=== PATIENT | male | born 1965 | race Hispanic/Latino ===

== ENCOUNTER 2016-12-02 11:48 | Emergency (ER) | payer OTHER ==
[2016-12-02] VITALS (8 sets, daily range): BP systolic 72–99; BP diastolic 40–59; PULSE 65–121; RESP 13–32; O2SAT 95–100
--- NOTE | 2016-12-02 11:45 | ED.REPORT ---
HPI-General Illness Date of Service Dec 02, 2016 ED Provider: Dr. Zuluaga Pt is a 51 year old male with a history of a DKA in October, who presents to the ED via EMS with concerns for altered mental status that started a couple of days ago. Per EMS, he has been acting abnormally, urinating around his apartment. He was found today in his room, which was freezing cold, naked on the floor, unresponsive. He responds to painful stimuli, but is otherwise unresponsive. He is hypotensive, with an elevated blood sugar and a temperature of 89.4. Nursing Notes Stated Complaint: ALTERED MENTAL STATUS/HIGH BLOOD SUGAR Chief Complaint: AMS Nursing Notes Reviewed: Yes Allergies: Coded Allergies: acetaminophen (Verified Allergy, Unknown, 07/15/16) aspirin (Verified Allergy, Unknown, rash, 07/15/16) Scheduled Atorvastatin Calcium (Atorvastatin Calcium) 20 Mg Tablet 20 MG PO DAILY Buspirone (Buspirone) 30 Mg Tablet 30 MG PO DAILY Fenofibrate Nanocrystallized (Fenofibrate) 145 Mg Tablet 145 MG PO DAILY Fluoxetine (Fluoxetine) 40 Mg Capsule 40 MG PO MORNING Gemfibrozil (Gemfibrozil) 600 Mg Tablet 600 MG PO BID Metoclopramide (Metoclopramide) 10 Mg Tablet 10 MG PO TIDAC & HS Omeprazole (Omeprazole) 20 Mg Capsule.dr 20 MG PO DAILY Pregabalin (Lyrica) 150 Mg Capsule 150 MG PO TID Risperidone (Risperidone) 1 Mg Tablet 1 MG PO HS Ziprasidone (Ziprasidone) 80 Mg Capsule 160 MG PO HS Scheduled PRN Dicyclomine (Dicyclomine) 20 Mg Tablet 40 MG PO QID PRN PRN For GI Cramps Hydroxyzine HCl (HydrOXYzine Hcl) 50 Mg Tablet 50 MG PO HS PRN PRN For Itching Hydroxyzine Pamoate (Vistaril) 25 Mg Capsule 25 MG PO DAILY PRN PRN For Anxiety Insulin Glargine (Lantus U100 Insulin Vial) 100 Unit/Ml Vial 50 UNIT SUBQ DAILY PRN PRN Diabetes Insulin Human Lispro (HumaLOG U100 Insulin Vial) 100 Unit/Ml Unit 15 UNIT SUBQ TIDWM PRN PRN diabetes Check blood sugars before meals and at bedtime. Use correction factor only before meals. Blood Sugar Lispro Correction: <151, 0 units; 151-175, 1 unit; 176-200, 2 units; 201-225, 3 units; 226-250, 4 units; 251-275, 5 units; 276-300 , 6 units; 301-325, 7 units; 326-350, 8 units; 351-375, 9 units; 376-400, 10 units; >400, 12 units. 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 Physical Exam Vital Signs Vital Signs Date Time Temp Pulse Resp B/P Pulse Ox O2 Delivery O2 Flow Rate FiO2 12/02/16 14:10 65 17 99/56 100 Mechanical Ventilator 12/02/16 13:56 100 12/02/16 13:42 32.3 121 13 72/40 100 Mechanical Ventilator 12/02/16 13:20 32.1 68 28 85/59 95 Nasal Cannula 1 12/02/16 12:29 69 21 81/47 98 Nasal Cannula 1 12/02/16 11:58 102 30 77/50 Room Air 12/02/16 11:49 31.2 107 32 79/44 99 Room Air See paper chart Initial VS: Reviewed Head / Eyes: Atraumatic, Normocephalic, PERRL Neck: Supple, Non-tender, Full range of motion Alertness: Positive: Responds to pain stimuli (Moaning/Localizes to painful stimuli), Unresponsive Appearance / Presentation: Positive: Cachectic, Frail Hypotensive Hypothermic No signs of trauma Opens eyes ENT: Atraumatic, Airway patent Mouth: Positive: Mucous membranes dry Respiratory / Chest: Atraumatic, Breath sounds NL, Breath sounds = bilat Tachypnic Cardiovascular: Regular rhythm, Heart sounds NL, No gallop, No murmurs, No rubs Heart Rate / Rhythm: Positive: Tachycardia Back: Non-tender Minor abrasion to left lumbar, paraspinal area without surrounding tenderness Interpretation & Diagnostics Lab Results Interpretation Result Diagram: 12/02/16 1205 12/02/16 1205 Test 12/02/16 12:05 12/02/16 12:18 White Blood Count 9.9th/mm3 (3.8-10.1) Red Blood Count 5.20mil/mm3 (4.40-5.80) Hemoglobin 14.7g/dL (13.8-17.2) Hematocrit 40.4% (41.0-50.0) Mean Corpuscular Volume 77.7fL (81-100) Mean Corpuscular Hemoglobin 28.3pg (27.0-35.0) Mean Corpuscular Hemoglobin Concent 36.4% (32.0-37.0) Red Cell Distribution Width 12.9% (12.3-15.4) Platelet Count 222bil/L (150-400) Neutrophils (%) (Auto) 80.0% (40-74) Lymphocytes (%) (Auto) 7.7% (14-46) Monocytes (%) (Auto) 11.9% (4-12) Eosinophils (%) (Auto) 0% (0-5) Basophils (%) (Auto) 0.1% (0-3) Sodium Level 128mEq/L (134-144) Potassium Level 5.7mEq/L (3.5-5.2) Chloride Level 81mEq/L (97-108) Carbon Dioxide Level 8mmol/L (18-29) Blood Urea Nitrogen 155mg/dL (6-24) Creatinine 5.55mg/dL (0.76-1.27) Estimat Glomerular Filtration Rate 12mL/min (>59) Glucose Level 1016mg/dL (60-99) Lactic Acid Level 1.9mmol/L (0.4-2.0) Calcium Level 8.8mg/dL (8.5-10.1) Magnesium Level 4.3mg/dL (1.6-2.6) Total Bilirubin 0.2mg/dL (0.0-1.2) Aspartate Amino Transf (AST/SGOT) 28U/L (0-50) Alanine Aminotransferase (ALT/SGPT) 29U/L (0-44) Alkaline Phosphatase 130U/L (25-150) Troponin T < 0.010ug/L (0.0-0.011) Total Protein 7.3g/dL (6.4-8.4) Albumin 3.6g/dL (3.4-5.0) Ketones 1:32 Urine Color Yellow (YELLOW) Urine Appearance Hazy (CLEAR,HAZY) Urine pH 5.0 (5.0-8.0) Urine Specific [place] 1.022 (1.003-1.035) Urine Protein Tracemg/dL (NEG,TRACE) Urine Glucose (UA) 1000mg/dL (NEGATIVE) Urine Ketones 15mg/dL (NEGATIVE) Urine Occult Blood Large (NEGATIVE) Urine Nitrite Negative (NEGATIVE) Urine Bilirubin Negative (NEGATIVE) Urine Urobilinogen Normalmg/dL (NORMAL) Urine Leukocyte Esterase Negative (NEGATIVE) Urine RBC 3-10/hpf (0-2) Urine WBC 0-5/hpf (0-5) Urine Epithelial Cells Few/hpf (NONE-MOD) Urine Crystals Amorphous urates (NONE Urine Bacteria None/hpf (NONE-FEW) Urine Hyaline Casts None/lpf (NONE) Urine Granular Casts Occasional (NONE SEEN) Urine Waxy Casts None seen (NONE SEEN) Urine Red Blood Cell Casts None seen (NONE SEEN) Urine White Blood Cell Casts None seen (NONE SEEN) Urine Mucus None seen (None Seen) Urine Trichomonas None seen (NONE SEEN) Urine Yeast None (NONE SEEN) Urinalysis Comment None Urine Culture Reflexed Not indicated Lab Results Interpretation: Blood Gas Report: pH: 7.038 pCO2: 34 pO2: 60.5 cHCO3-: 8.8 cBase: -22.0 Treated with 1L of normal saline by medics and 7L of normal saline her in the ED. ECG Interpretation ECG Interpretation: SR - 62 Non-specific intraventricular conduction delay ST elevation, probable normal early repolarization pattern Time: 12:10 Interpreted by: ED physician X-Ray Chest Interpretation Chest Xray Interpretation: IMPRESSION: No acute cardiopulmonary disease. Dictated by: Marlo Hanks M.D. on 12/02/2016 at 12:10 View: Portable, 1 view Interpretation / Wet Read by: Interpret - Radiologist Chest Xray Interpretation: IMPRESSION: Endotracheal tube and right internal jugular central venous catheter are in expected positions. No pneumothorax. Dictated by: Marlo Hanks M.D. on 12/02/2016 at 14:22 View: Portable, 1 view Interpretation / Wet Read by: Interpret - Radiologist Procedures Central Line Placement Time: 13:54 Procedure Performed by: ED physician Consent / Setup / Site Prep: No consent - emergent, Time-out performed, Needle aspirate performed, Oxygen administered, Pulse oximeter applied, cardiac monitor applied, Hand hygiene observed, Standard surgical scrub, Max barrier precaution, Sterile drapes applied, Position supine Skin Preparation Agent: Hibiclens - Chlorhexidine Procedural Sedation/Analgesia: Sedation: Ketamine Side / Location / Ultrasound: Internal jugular right, Ultrasound assisted Catheter / Lumen / Technique: Good blood return, Secured with tape Central Line Tip Location: Other (17cm) Post-Procedure / Complications: Condition improved, Tolerated procedure well , Patient stable Intubation Time: 13:34 Procedure Performed by: ED physician Consent / Setup / Site Prep: No consent - emergent, Time-out performed, Oxygen administered, Pulse oximeter applied, cardiac monitor applied, Hand hygiene observed, Stand sterile technique Patient Position: Sniff position Blade / ET Tube / Route: Mac, Route: oral Procedural Sedation/Analgesia: Sedation: Ketamine Neuromuscular Agent: Succinylcholine ET Confirmation: Direct visualization, BS equal, Rising O2 sat Secured / Marked: Tube marked at ___ cm (23) Complications: None Post-Procedure: Condition improved, Tolerated procedure well, Patient stable Re-Eval/Medical Decision Med Decision/Clinical Course DKA with acute renal failure, patient is intubated due to hemodynamic instability, shock, and persistent altered mental status. Should be noted that while the patient is persistently altered is not significant or focal neurological examination to see any indication for emergent head CT. The patient received 1 L of normal saline prior to arrival. The patient will have 7 L normal saline in the ER. The patient was given 150 mg of IV ketamine for intubation, additionally the patient is on a norepinephrine, fentanyl, and insulin drip. She will be transferred due to bed capacity. Source of Hx: Old records, EMS Time of Eval: 11:56 Re-Evaluation/Progress Note: Pt is consistentely monitored. Pt is able to open his eye when directed but is unable to respond verbally. Time of Eval: 12:11 Re-Evaluation/Progress Note: Pt is rechecked, he is still unable to verbally respond. Time of Eval: 13:18 Re-Evaluation/Progress Note: Pt is rechecked and prepped for central line placement and intubation. Consultation : Call Returned at: 13:44 Note: Spoke with Dr. Parker at [facility]. Informed of patient's condition. Accepts transfer. Counseled Regarding: Diagnosis, Lab results, Need for transfer Discharge & Departure Primary Impression: DKA (diabetic ketoacidoses) Additional Impressions: Shock Hypotension Hypotension type: unspecified hypotension type Qualified Code: I95.9 - Hypotension, unspecified Disposition: Transfer, Acute Care Facility Receiving Hospital: [facility]. Dr. Parker Transfer Accepted: Yes Transfer Accepted at: 13:45 Transfer Reason: Higher level of care Spoke with: Attending physician Patient Status: Stable Patient Informed: Yes Discharge Condition All VS Reviewed: Yes Condition: Stable Referrals: Bhavani Galeano MD (PCP) Crit Care Except Billable Proc Time Spent: 75-104 minutes Services Performed: Patient management by me, Time spent at bedside, Reviewing test results, Reviewing imaging, Discussing patient care, Documentation in record, Time with fam/surrogate Critical Care Notes: See MDM Scribe Attestation Portions of this note were transcribed by Molly Ibarra. I, Dr. Zuluaga personally performed the history, physical exam and medical decision-making; I reviewed and confirmed the accuracy of the information in the transcribed note. Signed by: Nessa Gordon, 12/02/2016 1893. copies to: Bhavani Galeano MD, Timothy S DO Dec 02, 2016 11:45 WU IBARRA Dec 02, 2016 11:54
[~2016-12-02 11:48] MED LIST: ATOR20TA65 PO; BUSP30TA2 PO; DICY20TA10 PO; FENO145T19 PO; FLUO40CA PO; GEMF600T3 PO; HYDR25CA PO; HYDR50TA76 PO; INSLIS SUBQ; INSU100V7 SUBQ; METO10TA3 PO; OMEP20CA11 PO; PREG150C PO; RISP1TAB3 PO; TRAM50TA2 PO; ZIPR80CA22 PO
[2016-12-02] MEDS ORDERED: 0.9% Sodium Chloride 1,000 ML IV ONE ×2 (11:51→11:55)
[2016-12-02] MEDS ORDERED: 0.9% Sodium Chloride 1,000 ML IV SCH ×3 (11:55→14:35)
[2016-12-02] MEDS: 0.9% Sodium Chloride 1,000 ML IV SCH ×2 (11:55→12:16)
--- NOTE | 2016-12-02 12:07 | ABG ---
DateTimeAnalyzed 12:02:00 -_ pH ____7.038 - pCO2 ___34.1__ -mmHg pO2 ___60.5__ -mmHg HCO3- ____8.8__ -mmol/L ABE __-22.0__ -mmol/L tHb ___15.0__ -g/dL O2Hb ___82.3__ -% COHb ____1.4__ -% MetHb ____1.8__ -% sO2 ___85.0__ -% FIO2 ___21.0__ -% Drawn By LAB - Date/Time Notified____ 12:07:00 -_ Notified By JJ - Notified Whom DR OKELLEY - B 758 -mmHg tO2 ___17.4__ -Vol% Ghulam test N/A -
--- NOTE | 2016-12-02 12:12 | DRSVH ---
PROCEDURE: X-RAY CHEST ONE VIEW, PORTABLE ([id number]) INDICATIONS: 51 year-old male with weakness and altered mental status. TECHNIQUE: One view of the chest was acquired. COMPARISON: [facility], CR, XR CHEST 1VW (PORTABLE), 10/01/2016, 18:36. [facility], CR, CHEST 2VW, 12/04/2015, 10:04. [facility], CR, CHEST 1VW (PORTABLE), 12/26/19 15, 16:28. FINDINGS: Surgical changes and devices: None. Lungs and pleura: No pleural effusions or pneumothorax. Lungs are clear. Mediastinum: Mediastinal contours appear normal. Heart size is normal. Bones and chest wall: No suspicious bony lesions. Overlying soft tissues appear unremarkable. IMPRESSION: No acute cardiopulmonary disease. Dictated by: Marlo Hanks M.D. on 12/02/2016 at 12:10 Approved by: Marlo Hanks M.D. on 12/02/2016 at 12:10
[2016-12-02] MEDS ORDERED: Insulin Human REGular Inj 100 UNIT in 0.9% Sodium Chloride 100 ML IV SCH (12:15)
[2016-12-02 12:19] LABS: BASOPHILS % (AUTO) 0.1 % (0-3); EOSINOPHILS % (AUTO) 0 % (0-5); MONOCYTES % (AUTO) 11.9 % (4-12); Mean Corpuscular Hemoglobin 28.3 pg (27.0-35.0); Mean Corpuscular Volume 77.7 fL (81-100); Platelet Count 222 bil/L (150-400)
[2016-12-02 12:57] LABS: Magnesium 4.3 mg/dL (1.6-2.6)
[2016-12-02 13:00] LABS: TROPONIN T < 0.010 ug/L (0.0-0.011)
[2016-12-02] MEDS ORDERED: Ketamine 10 mg/mL 20 mL Inj IV ONE (13:10)
[2016-12-02] MEDS ORDERED: fentaNYL 2,500 mCg/250 mL 2,500 MCG in IV Premix 1 EACH IV SCH (13:10)
[2016-12-02] MEDS ORDERED: Norepineph 8,000 mCg/250 mL NS 8,000 MCG in IV Premix 1 EACH IV SCH (13:10)
[2016-12-02 13:29] LABS: APPEARANCE,URINE HAZY (CLEAR,HAZY); COLOR,URINE YELLOW (YELLOW); OCCULT BLOOD,URINE LARGE (NEGATIVE); UROBILINOGEN,URINE NORMAL (NORMAL)
--- NOTE | 2016-12-02 14:23 | DRSVH ---
PROCEDURE: X-RAY CHEST ONE VIEW, PORTABLE ([id number]) INDICATIONS: 51 year-old male with intubation and central line placement. TECHNIQUE: One view of the chest was acquired. COMPARISON: [facility], CR, XR CHEST 1VW (PORTABLE), 12/02/2016, 11:45. [facility], CR, XR CHEST 1VW (PORTABLE), 10/01/2016, 18:36. [facility] [place] [facility], CR, CHEST 2VW, 12/04, 10:04. FINDINGS: Surgical changes and devices: Right internal jugular central venous catheter is now present, with tip in the lower superior vena cava. Endotracheal tube is now present, with tip 4.5 cm above the arley. Lungs and pleura: No pleural effusions or pneumothorax. Lungs are clear. Mediastinum: Mediastinal contours appear normal. Heart size is normal. Bones and chest wall: No suspicious bony lesions. Overlying soft tissues appear unremarkable. IMPRESSION: Endotracheal tube and right internal jugular central venous catheter are in expected posi tions. No pneumothorax. Dictated by: Marlo Hanks M.D. on 12/02/2016 at 14:22 Approved by: Marlo Hanks M.D. on 12/02/2016 at 14:22
--- NOTE | 2016-12-02 15:13 | ABG ---
DateTimeAnalyzed 15:08:00 -_ pH ____6.921 - 7.350 7.450 pCO2 ___58.1__ -mmHg 35.0 45.0 pO2 485 -mmHg 69.0 116 HCO3- ___11.3__ -mmol/L 22.0 26.0 ABE __-22.0__ -mmol/L -2.0 2.0 tHb ___12.8__ -g/dL O2Hb ___96.4__ -% COHb ____0.7__ -% MetHb ____1.7__ -% sO2 ___98.8__ -% 25.0 FIO2 __100.0__ -% Drawn By jj - Date/Time Notified____ 15:12:00 -_ Oxygen Device 1 VENTILATOR - Notified By jj - Notified Whom dr okelley - B 759 -mmHg tO2 ___18.6__ -Vol% Ghulam test _Positive -
--- NOTE | 2016-12-02 15:16 | ABG ---
DateTimeAnalyzed 15:08:00 -_ pH ____6.921 - 7.350 7.450 pCO2 ___58.1__ -mmHg 35.0 45.0 pO2 485 -mmHg 69.0 116 HCO3- ___11.3__ -mmol/L 22.0 26.0 ABE __-22.0__ -mmol/L -2.0 2.0 tHb ___12.8__ -g/dL O2Hb ___96.4__ -% COHb ____0.7__ -% MetHb ____1.7__ -% sO2 ___98.8__ -% 25.0 FIO2 __100.0__ -% PEEP ____5.0__ -cmH2O Set_RR ___22.0__ -b/min Drawn By jj - Date/Time Notified____ 15:12:00 -_ Spontaneous_RR ___22.0__ -b/min A/C __530.0__ - Oxygen Device 1 VENTILATOR - Notified By jj - Notified Whom dr okelley - B 759 -mmHg tO2 ___18.6__ -Vol% Ghulam test _Positive -
[2016-12-02] MEDS ORDERED: Sodium Bicarb (50 mEq) 8.4% 1 mEq/mL 50 mL Syringe IVPUSH ONE (15:30)
== END 2016-12-02 15:53 | disposition short-term general hospital (02) ==
LOC: SED 11:48
DX: E11.69 Type 2 diabetes mellitus with other specified complication (principal); E87.2 Acidosis; I95.9 Hypotension, unspecified; R57.9 Shock, unspecified; E78.5 Hyperlipidemia, unspecified; F17.200 Nicotine dependence, unspecified, uncomplicated; Z79.4 Long term (current) use of insulin; Z88.8 Allergy status to other drugs, medicaments and biological substances
CPT/HCPCS: 31500; 36415; 36556; 36620; 51702; 71010; 80053; 81000; 81002; 82009; 82010; 82308; 82375; 82803; 82948; 83605; 83735; 84484; 85025; 87040; 93005; 94002; 94799; 96361; 96374; 96375; 99291; 99292; J3010; J7030

== ENCOUNTER 2017-07-17 09:09 | Observation (INO) | payer OTHER ==
[~2017-07-17] VITALS: Ht 172.7 cm; Wt 82.7 kg
[2017-07-17] VITALS (8 sets, daily range): BP systolic 136–190; BP diastolic 84–117; PULSE 76–106; RESP 16–29; O2SAT 98–100
--- NOTE | 2017-07-17 09:17 | ED.REPORT ---
HPI-Neurologic Deficit Date of Service Jul 17, 2017 ED Provider: Dr. Echeverria Pt is a 51 year old male with a hx of DM, DKA, schizoaffective disorder, HTN, and GERD presenting to the ED via EMS due to a headache onset 2 days ago and confusion onset 4 days ago. Associated symptoms include shakiness, diaphoresis, fatigue, "bad odor", subjective fever, photophobia, periumbilical abdominal pain , and chest pain. He states that he feels "incoherent". Denies vision changes, speech problems, focal weakness, neck pain, SOB, or recent falls. The pt lives with a roommate who he reports called paramedics. HPI limited due to altered mental status of patient. His sister states over the phone that he has been like this once before when he had high blood sugar. The pt was admitted in December at [place] with DKA and enterocolitis due to c.diff. Nursing Notes Stated Complaint: HEADACHE/CONFUSED Chief Complaint: Neuro Symptoms/ Deficits Nursing Notes Reviewed: Yes Allergies: Coded Allergies: acetaminophen (Verified Allergy, Unknown, 07/17/17) aspirin (Verified Allergy, Unknown, rash, 07/17/17) Scheduled Atorvastatin Calcium (Atorvastatin Calcium) 20 Mg Tablet 20 MG PO DAILY Buspirone (Buspirone) 15 Mg Tablet 15 MG PO TID Doxepin (Doxepin) 100 Mg Capsule 100 MG PO HS Duloxetine (Duloxetine) 60 Mg Capsule.dr 120 MG PO DAILY Hydroxyzine HCl (HydrOXYzine Hcl) 50 Mg Tablet 100 MG PO BID Metoclopramide (Metoclopramide) 10 Mg Tablet 10 MG PO ACHS Omeprazole (Omeprazole) 20 Mg Capsule.dr 20 MG PO DAILY Pregabalin (Lyrica) 150 Mg Capsule 150 MG PO TID Ziprasidone (Ziprasidone) 80 Mg Capsule 80 MG PO BID Scheduled PRN Dicyclomine (Dicyclomine) 20 Mg Tablet 40 MG PO QID PRN PRN For GI Cramps Hydroxyzine Pamoate (Vistaril) 25 Mg Capsule 25 MG PO DAILY PRN PRN For Anxiety Insulin Glargine (Lantus U100 Insulin Vial) 100 Unit/Ml Vial 50 UNIT SUBQ DAILY PRN PRN Diabetes Insulin Human Lispro (HumaLOG U100 Insulin Vial) 100 Unit/Ml Unit 15 UNIT SUBQ TIDWM PRN PRN diabetes Check blood sugars before meals and at bedtime. Use correction factor only before meals. Blood Sugar Lispro Correction: <151, 0 units; 151-175, 1 unit; 176-200, 2 units; 201-225, 3 units; 226-250, 4 units; 251-275, 5 units; 276-300 , 6 units; 301-325, 7 units; 326-350, 8 units; 351-375, 9 units; 376-400, 10 units; >400, 12 units. Risperidone (Risperidone) 1 Mg Tablet 1 MG PO HS PRN PRN For Insomnia Tramadol (Tramadol) 50 Mg Tablet 50-100 MG PO TID PRN PRN For Pain General Time Seen by Provider: 09:20 Chief Complaint Mental status change Hx Obtained From: Patient, EMS Arrived By: Ambulance Sudden in Onset?: No Onset Occurred: 4 days ago Symptom Duration: Since onset Progression Since Onset: Constant Location: : Abdomen: Chest: HeadNo: Neck Quality: Painful Severity: Current: Moderate Severity: Maximum: Moderate Recent Healthcare: No recent doctor visit, No recent hospitalization Similar Sx Previous: No Past Medical History Past Medical History Admitted in December at [place] with DKA and enterocolitis due to c.diff Schizoaffective disorder Chronic back pain HTN Reports: Diabetes mellitus, Hyperlipidemia Past Surgical History Hernia repair x3 and umbilical surgery Family History Noncontributory Smoking History Never Smoker Social History Renting room 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 Alcohol Use: Denies alcohol use Drug Use: Denies drug use, Meth Occupation disabled Ambulatory Status Independent Review of Systems Unable to Obtain ROS Mental status Physical Exam Initial Vital Signs Vital Signs (First) Date Time Temp Pulse Resp B/P Pulse Ox O2 Delivery O2 Flow Rate FiO2 07/17/17 09:13 106 29 166/117 100 Room Air 07/17/17 13:36 36.9 Initial VS: Reviewed ENT: Mucous membranes moist, Conjunctiva normal, No scleral icterus Extremities: Vascular intact, Neuro intact, No swelling, No tenderness Skin: Warm, Dry, No cyanosis General/Constitutional: Awake Head / Eyes: Atraumatic, Normocephalic, PERRL, EOMI Respiratory / Chest: Atraumatic, Breath sounds NL, Breath sounds = bilat, No respiratory distress Cardiovascular: Heart rate NL, Regular rhythm, Heart sounds NL, No murmurs Neurologic: Speech NL, CN II - XII intact Negative Brudzinski's Test Neck: Atraumatic, Supple, No meningismus, Full range of motion Abdomen: Atraumatic, Soft, McBurney's non-tender, No guarding, No rebound Mild periumbilical pain Interpretation & Diagnostics Interpretation & Diagnostics: CT ANGIO CHEST/ABD/PELVIS: IMPRESSION: 1. Mild atherosclerosis of the thoracic and abdominal aorta without evidence of aneurysm, dissection, rupture, or occlusion. 2. Mild atherosclerotic changes are noted involving the iliac arteries. No high-grade stenosis or aneurysm. 3. Moderate atherosclerotic irregularity at the origin of the left vertebral artery is not well characterized. 4. No acute abnormality is appreciated within the chest, abdomen, or pelvis. 5. Small hiatal hernia with a fluid-filled esophagus. Please correlate clinically for gastroesophageal reflux and/or esophagitis. 6. Probable hepatic steatosis. 7. 5 mm nodule along the major fissure of the right lung. Please consider followup CT imaging of the chest in 6-12 months. 8. Mild colonic diverticulosis without diverticulitis. No bowel obstruction. 9: Coronary artery atherosclerotic changes. Dictated by: Griffin Acevedo M.D. on 07/17/2017 at 11:40 Lab Results Interpretation Result Diagram: 07/17/17 0925 07/17/17 0925 Test 07/17/17 09:25 07/17/17 09:47 07/17/17 12:44 White Blood Count 14.5th/mm3 (3.8-10.1) Red Blood Count 5.39mil/mm3 (4.40-5.80) Hemoglobin 15.8g/dL (13.8-17.2) Hematocrit 42.9% (41.0-50.0) Mean Corpuscular Volume 79.6fL (81-100) Mean Corpuscular Hemoglobin 29.3pg (27.0-35.0) Mean Corpuscular Hemoglobin Concent 36.8% (32.0-37.0) Red Cell Distribution Width 12.9% (12.3-15.4) Platelet Count 273bil/L (150-400) Neutrophils (%) (Auto) 72.9% (40-74) Lymphocytes (%) (Auto) 16.5% (14-46) Monocytes (%) (Auto) 10.2% (4-12) Eosinophils (%) (Auto) 0.1% (0-5) Basophils (%) (Auto) 0.1% (0-3) Sodium Level 135mEq/L (134-144) Potassium Level 3.0mEq/L (3.5-5.2) Chloride Level 92mEq/L (97-108) Carbon Dioxide Level 16mmol/L (18-29) Blood Urea Nitrogen 26mg/dL (6-24) Creatinine 1.03mg/dL (0.76-1.27) Estimat Glomerular Filtration Rate 81mL/min (>59) Glucose Level 373mg/dL (60-99) Calcium Level 9.5mg/dL (8.5-10.1) Total Bilirubin 1.2mg/dL (0.0-1.2) Aspartate Amino Transf (AST/SGOT) 44U/L (0-50) Alanine Aminotransferase (ALT/SGPT) 29U/L (0-44) Alkaline Phosphatase 102U/L (25-150) Total Protein 7.9g/dL (6.4-8.4) Albumin 4.6g/dL (3.4-5.0) Hold Villanueva Top Tube Received (Received) Prothrombin Time 11.0sec (8.1-12.5) Prothromb Time International Ratio 1.03ratio D-Dimer < 0.50mg/L FEU (<0.50) Osmolality 307 (275-300) Troponin T < 0.010ug/L (0.0-0.011) Lipase 9U/L (13-60) Procalcitonin 0.06ng/mL (0.00-0.08) Salicylates Level < 3.0ug/mL (30-250) Acetaminophen Level < 15.0ug/mL Rx (10-25) Alcohols < 10mg/dL (0-10) Ketones Negative (Negative) Lactic Acid Level 3.0mmol/L (0.4-2.0) Ammonia 27ug/dL (18-53) ECG Interpretation ECG Interpretation: Sinus tachycardia with a rate of 101. No ST-T changes. QTC of 513. Improved from previous. Time: 09:14 Interpreted by: ED physician X-Ray Chest Interpretation Chest Xray Interpretation: IMPRESSION: Decreased lung volumes, without acute cardiopulmonary disease. Dictated by: Marlo Hanks M.D. on 07/17/2017 at 9:42 View: Portable, 1 view Interpretation / Wet Read by: Interpret - Radiologist CT Head Interpretation IMPRESSION: Essentially unremarkable head CT. No convincing evidence of acute intracranial hemorrhage. If the patient's neurological symptoms persist, please consider obtaining a repeat head CT. Dictated by: Griffin Acevedo M.D. on 07/17/2017 at 11:36 Study: Head CT no contrast Interpretation / Wet Read by: Interpret - Radiologist Procedures Lumbar Puncture Time: 14:12 Procedure Performed by: ED physician Consent / Setup / Site Prep: Consent from patient, Time-out performed, Hand hygiene observed, Stand sterile technique, Sterile drapes applied, Patient sitting up Skin Preparation Agent: Betadine Local Anesthesia: Lidocaine 1% Inserted Needle at: L3 L4 Post-Procedure / Complications: Antibiotic oint applied, Dressing applied, No complications, Tolerated procedure well, Patient stable Re-Eval/Medical Decision Med Decision/Clinical Course 51-year-old male history of diabetes presenting with altered mental status. Patient significantly altered for 4 days per family. Vital signs are stable. CT brain no acute pathology though artifacts reported recommended repeat CT head as needed. CT angios chest abdomen pelvis no acute pathology. His lactic is 4.9 improved to 3 with IV fluids. He has a leukocytosis. Ketones are negative. He does have an anion gap acidosis. Osmoles did not meet criteria for HHS. His sugar and is in the 300s. Lumbar puncture was performed with no white cells or red cells. Patient was admitted for altered mental status due to DKA and C. difficile enterocolitis and pneumonia earlier this year to outside hospital. There is no evidence of pneumonia and no diarrhea today. Stool was ordered. Visual be admitted for altered mental status, sepsis. Broad spectrum antibiotics given. Admitted to hospitalist. Re-Evaluation/Progress #1: Time of Eval: 09:49 Patient Status: Condition unchanged Re-Evaluation/Progress Note: Spoke to the pt's sister over the phone. Pt has been confused for 4 days, and has been refusing to go to the hospital. He has been like this once before when he had high blood sugar. Re-Evaluation/Progress #2: Time of Eval: 10:24 Patient Status: Condition improved Re-Evaluation/Progress Note: Pt reports that his head hurts, he is fatigued, and he is "ready to go home." Explained to the pt the seriousness of his condition. Re-Evaluation/Progress #3: Time of Eval: 14:08 Patient Status: Condition improved Re-Evaluation/Progress Note: Discussed results and plan for admission with the pt's son and cousin. Performed lumbar puncture. Pt tolerated procedure well. Magdaleno pt's Son: [phone] Consultation : Referral / Consult Name: Ghulam Carey MD Consulted With: Hospitalist Call Returned at: 14:11 Cloth Pattern Maker: Will see patient, Agrees with plan, Accepts admit Counseled Regarding: Diagnosis, Lab results, Need for admission Discharge & Departure Impression: Primary Impression: Altered mental status Altered mental status type: delirium Qualified Code: R41.0 - Disorientation , unspecified Additional Impressions: Hypokalemia Lactic acidosis Sepsis Disposition: ADMITTED TO HOSPITAL Discharge Condition All VS Reviewed: Yes Condition: Improved Referrals: Bhavani Galeano MD (PCP) Scribe Attestation Portions of this note were transcribed by Bernadette Guerra. I, Dr. Echeverria personally performed the history, physical exam and medical decision-making; I reviewed and confirmed the accuracy of the information in the transcribed note. Signed by: Nessa Collazo, 07/17/2017. copies to: Bhavani Galeano MD, Ben M MD Jul 17, 2017 09:16 BERNADETTE GUERRA Jul 17, 2017 09:29
[2017-07-17] MEDS ORDERED: Ondansetron 2 mg/mL 2 mL Inj IVPUSH PRN ×3 (09:30→14:55)
[2017-07-17] MEDS ORDERED: 0.9% Sodium Chloride 1,000 ML IV ONE (09:30)
[2017-07-17 09:39] LABS: BASOPHILS % (AUTO) 0.1 % (0-3); EOSINOPHILS % (AUTO) 0.1 % (0-5); MONOCYTES % (AUTO) 10.2 % (4-12); Mean Corpuscular Hemoglobin 29.3 pg (27.0-35.0); Mean Corpuscular Volume 79.6 fL (81-100); NEUTROPHILS % (AUTO) 72.9 % (40-74); Platelet Count 273 bil/L (150-400)
--- NOTE | 2017-07-17 09:44 | DRSVH ---
PROCEDURE: X-RAY CHEST ONE VIEW, PORTABLE ([id number]) INDICATIONS: 51 year-old male with chest pain. TECHNIQUE: One view of the chest was acquired. COMPARISON: [facility], CR, XR CHEST 1VW (PORTABLE), 12/02/2016, 14:02. [facility], CR, XR CHEST 1VW (PORTABLE), 10/01/2016, 18:36. [facility], CR, CHEST 1VW (WILMAN B[facility]), 12/26/2014, 16:28. FINDINGS: Surgical changes and devices: None. Lungs and pleura: No pleural effusions or pneumothorax. Lungs are clear. Lung volumes are decrease d. Mediastinum: Mediastinal contours appear normal. Heart size is normal. Bones and chest wall: No suspicious bony lesions. Overlying soft tissues appear unremarkable. IMPRESSION: Decreased lung volumes, without acute cardiopulmonary disease. Dictated by: Marlo Hanks M.D. on 07/17/2017 at 9:42 Approved by: Marlo Hanks M.D. on 07/17/2017 at 9:43
[2017-07-17 09:58] LABS: D-Dimer < 0.50 mg/L FEU (<0.50); INR 1.03 ratio
[2017-07-17 11:49] LABS: Lipase 9 U/L (13-60)
[2017-07-17] MEDS ORDERED: KCl 40 mEq/D5W 500 mL 40 MEQ in IV Premix 1 EACH IV ONE (12:05)
--- NOTE | 2017-07-17 12:41 | DRSVH ---
PROCEDURE: CT BRAIN WITHOUT CONTRAST ([id number]) INDICATIONS: altered mental status TECHNIQUE: Noncontrast 4.5 mm thick angled axial sections acquired from the foramen magnum to the vertex, with c oronal reformats. COMPARISON: [facility], CT, CT BRAIN WO CON, 10/02/2016, 3:07. FINDINGS: Image quality: Diagnostic. Mild motion artifact is present through the mid aspect of the head. Brain: There is no acute intra-axial or extra-axial hemorrhage. Volume averaging artifact is noted a long the anterior left frontal lobe related to the overlying calvarium, which next a hemorrhage. How ever, this is not felt to represent a subdural hematoma as it is only seen on a single image (image 1 7, series 2). Additional areas of artifact mimicking hemorrhage are seen overlying the subarachnoid region of the left frontal/parietal regions (image 20, series 2), which is felt to be attributable to motion artifact. Additional areas of mild motion artifact are present. No extra-axial fluid collec tion is identified. There is no midline shift or mass effect. The orbits are grossly unremarkable. No large areas of diffusely decreased attenuation are evident within the brain to suggest diffuse cer ebral edema. No focal parenchymal abnormality is identified. The ventricles and cortical sulci are age-appropriate. Bones: Calvarium and visualized facial bones are grossly intact. The imaged paranasal sinuses and m astoid air cells are clear. IMPRESSION: Essentially unremarkable head CT. No convincing evidence of acute intracranial hemorrhage. If the p atient's neurological symptoms persist, please consider obtaining a repeat head CT. Dictated by: Griffin Acevedo M.D. on 07/17/2017 at 11:36 Approved by: Griffin Acevedo M.D. on 07/17/2017 at 11:39
--- NOTE | 2017-07-17 13:00 | DRSVH ---
PROCEDURE: CT ANG CHEST/ABD/PEL W/WO CIBTRAST ([id number]) INDICATIONS: chest pain/abd pain/ altered mental status TECHNIQUE: Precontrast 5 mm thick sections acquired from the lung apices to the iliac crests. After the adminis tration of intravenous contrast, 3 mm thick sections again acquired from the lung apices to the iliac crests. 3-dimensional maximum intensity projection (MIP) oblique sagittal and coronal reformats wer e then acquired, and/or 3-dimensional volume rendering reformats. For radiation dose reduction, the following was used: automated exposure control. COMPARISON: [facility], CT, CT ABD PELVIS WO CON, 10/01/2016, 19:47. FINDINGS: Image quality: Diagnostic Arteries: The thoracic and abdominal aorta demonstrates mild areas of atherosclerotic irregularity. No evidence of aneurysm, dissection, or occlusion is present. No perivascular edema, hematoma, or o ther abnormality is evident. The major branch vessels of the thoracic aorta are widely patent. Tran erica, there is moderate atherosclerotic calcification noted at the origin of the left vertebral artery , which arises directly from the aortic arch. The other more distal portions of the arch vessels are not adequately seen or included on this exam. The celiac artery, superior mesenteric artery, bilate ral renal arteries, and inferior mesenteric artery are widely patent and otherwise within normal limi ts without significant atherosclerotic irregularity or occlusion. There is mild atherosclerosis note d involving the bilateral common iliac arteries without aneurysm or dissection. The external and int ernal iliac arteries are widely patent. The imaged portions of the common femoral arteries, profunda femoral arteries, and superficial femoral arteries are widely patent and otherwise unremarkable. CHEST: Lungs and pleura: No acute airspace opacities. No pleural effusions or pneumothorax. Central and p eripheral airways are patent and normal in caliber. There is a 5 mm nodule identified along the nasreen r pulmonary fissure within the anterior aspect of the right upper lobe. An additional adjacent pleur al-based nodule is seen along the fissure itself (image 30, series 10). Mild scarring within the rig ht middle lobe and lingula versus focal atelectasis is present. Mediastinum: The heart is normal in size without pericardial effusion. Coronary artery atheroscleros is is present. The main pulmonary arterial trunk is not enlarged. No large pulmonary emboli are anderson ntified. There is no mediastinal mass. No hilar or mediastinal adenopathy is present. There is flu id noted to be located within the esophagus. A small hiatal hernia is present. Bones and chest wall: No axillary adenopathy by size criteria. Thyroid gland is not enlarged. No s uspicious bony lesions. Age-appropriate degenerative changes of the imaged spine are present. No erica tebral body compression fractures. ABDOMEN: Solid organs: The liver is somewhat hypodense, when compared to the spleen. No definite liver lesion s are identified. The portal vein is widely patent. The gallbladder is not enlarged. The spleen is unremarkable. The adrenals are normal in size. The kidneys are within normal limits. There is no hydronephrosis. No renal calculi are evident. The ureters are not significantly dilated. The pancr eas demonstrates atrophy and without definite lesion or surrounding inflammation. Peritoneum and bowel: A small hiatal hernia is present. The stomach is otherwise unremarkable. The duodenum and remainder of the small bowel loops are nondilated. The appendix is well-visualized and normal. Distal colonic diverticulosis is present without significant surrounding inflammation to sug gest acute diverticulitis. There is no bowel obstruction. No free fluid, loculated fluid collection or free air is evident. Nodes and vessels: No retroperitoneal or mesenteric adenopathy by size criteria. Inferior vena cava is normal in morphology. Bones: No suspicious bony lesions. No vertebral body compression fractures. Age-appropriate degene rative changes of the lumbar spine are present. PELVIS: Soft tissues: No free fluid or loculated fluid collection is evident. There is no lymphadenopathy. No inguinal hernias are identified. The urinary bladder is grossly unremarkable. The prostate is no t significantly enlarged. Bones: No acute fracture or suspicious osseous lesion is evident. Mild degenerative changes of the s acroiliac joints and bilateral hips are present. There is no dislocation. IMPRESSION: 1. Mild atherosclerosis of the thoracic and abdominal aorta without evidence of aneurysm, dissection , rupture, or occlusion. 2. Mild atherosclerotic changes are noted involving the iliac arteries. No high-grade stenosis or a neurysm. 3. Moderate atherosclerotic irregularity at the origin of the left vertebral artery is not well alondra acterized. 4. No acute abnormality is appreciated within the chest, abdomen, or pelvis. 5. Small hiatal hernia with a fluid-filled esophagus. Please correlate clinically for gastroesophag eal reflux and/or esophagitis. 6. Probable hepatic steatosis. 7. 5 mm nodule along the major fissure of the right lung. Please consider followup CT imaging of th e chest in 6-12 months. 8. Mild colonic diverticulosis without diverticulitis. No bowel obstruction. 9: Coronary artery atherosclerotic changes. Dictated by: Griffin Acevedo M.D. on 07/17/2017 at 11:40 Approved by: Griffin Acevedo M.D. on 07/17/2017 at 11:58
[2017-07-17] MEDS ORDERED: Insulin LISPRO 300 Unit/3 mL Inj SUBQ ONE (13:10)
[2017-07-17] MEDS ORDERED: DOXE100C4 PO (13:42)
[2017-07-17] MEDS ORDERED: BUSP15TA3 PO (13:42)
[2017-07-17] MEDS ORDERED: DULO60CA61 PO (13:46)
[2017-07-17] MEDS ORDERED: Alum-Mag Hydrox-Simeth 30 mL Suspension PO PRN ×2 (14:40→14:55)
[2017-07-17] MEDS ORDERED: Piperacillin-Tazo 3.375 Gm Inj 3.375 GM in Dextrose 5% Minibag Plus 50 ML IV ONE (14:40)
[2017-07-17] MEDS ORDERED: Doxycycline Inj 100 MG in Dextrose 5% 100 ML IV ONE (14:40)
[2017-07-17] MEDS ORDERED: Vancomycin Dose per Pharmacist XX ONE (14:40)
--- NOTE | 2017-07-17 14:47 | PCM.HPMED ---
Subjective Date of Service Jul 17, 2017 Primary Provider: Admitting Physician: Ghulam Carey MD Primary Care Physician: Bhavani Galeano MD Attending Physician: Ghulam Carey MD Admit Status: From the Emergency Department, Full Admit, [facility] Telemetry Chief Complaint: Confusion History of Present Illness: This is a 51-year-old gentleman who lives with a roommate. He was brought in by family members because of confusion. History is provided primarily by the patient who is disoriented to year. He also has a son who is in some contact with him but does not have a lot of detailed information. The patient notes he has been sick for about 5 days with a mild headache and sore back. He has been more lethargic and had anorexia. He does have bipolar syndrome as well as diabetes. The patient has been checking his blood sugar very little and has not been taking medications for probably 3-4 days. He usually takes Lantus 10 units at bedtime 9 correctional Humalog but probably has not been taking this for several days either. He was found to be mildly hyperglycemic in the ER as well as having a metabolic acidosis with a positive lactic acid and negative ketones. The patient notes he has had some chronic hallucinations which are primarily auditory but denies any new problems with an escalation of hallucinations. He also denies any nausea, no vomiting. No visual changes. He denies any chest pain, cough, fevers, chills. He has been more lethargic and weak. He denies any diarrhea. He was incarcerated until about 4 years ago for extended time about 12 years. The patient was apparently admitted to [place] about 5 months ago with DKA and C. difficile toxin colitis as well as a possible pneumonia. His son notes she has a history of chronic marijuana use in a very distant history of cocaine use before incarceration. The patient denies any drug use other than the tramadol which is prescribed for pain. His U tox was positive only for opiates. The patient can provide no other specific details. Lumbar puncture reveals clear CSF in the ED. His vital signs are normal. CT of the chest and abdomen is unremarkable. CT of the head is unremarkable. Review of Systems: All systems reviewed and otherwise noncontributory except as noted in the history of present illness. He does take tramadol chronically for lower back pain but does deny a history of seizure or recent seizure. Allergies Coded Allergies: acetaminophen (Verified Allergy, Unknown, 07/17/17) aspirin (Verified Allergy, Unknown, rash, 07/17/17) Home Medications Atorvastatin Calcium (Atorvastatin Calcium) 20 Mg Tablet 20 MG PO DAILY Buspirone (Buspirone) 15 Mg Tablet 15 MG PO TID Doxepin (Doxepin) 100 Mg Capsule 100 MG PO HS Duloxetine (Duloxetine) 60 Mg Capsule.dr 120 MG PO DAILY Hydroxyzine HCl (HydrOXYzine Hcl) 50 Mg Tablet 100 MG PO BID Metoclopramide (Metoclopramide) 10 Mg Tablet 10 MG PO ACHS Omeprazole (Omeprazole) 20 Mg Capsule.dr 20 MG PO DAILY Pregabalin (Lyrica) 150 Mg Capsule 150 MG PO TID Ziprasidone (Ziprasidone) 80 Mg Capsule 80 MG PO BID Scheduled PRN Dicyclomine (Dicyclomine) 20 Mg Tablet 40 MG PO QID PRN PRN For GI Cramps Hydroxyzine Pamoate (Vistaril) 25 Mg Capsule 25 MG PO DAILY PRN PRN For Anxiety Insulin Glargine (Lantus U100 Insulin Vial) 100 Unit/Ml Vial 50 UNIT SUBQ DAILY PRN PRN Diabetes Insulin Human Lispro (HumaLOG U100 Insulin Vial) 100 Unit/Ml Unit 15 UNIT SUBQ TIDWM PRN PRN diabetes Check blood sugars before meals and at bedtime. Use correction factor only before meals. Blood Sugar Lispro Correction: <151, 0 units; 151-175, 1 unit; 176-200, 2 units; 201-225, 3 units; 226-250, 4 units; 251-275, 5 units; 276-300 , 6 units; 301-325, 7 units; 326-350, 8 units; 351-375, 9 units; 376-400, 10 units; >400, 12 units. Risperidone (Risperidone) 1 Mg Tablet 1 MG PO HS PRN PRN For Insomnia Tramadol (Tramadol) 50 Mg Tablet 50-100 MG PO TID PRN PRN For Pain PMH Studies mellitus 2, insulin-dependent Bipolar Chronic pain syndrome Surgical History Not obtainable. Family History Positive for depression and son. Social History Occupation: non- Hx Alcohol Use: No Hx Substance Use: Yes (MARIJUAN) Hx Tobacco Use: Yes (2 cigarettes per day) Smoking Status: Never Smoker Living Arrangement: with Friends/Roommate Exam Vital Signs Vital Sign - Last Date Time Temp Pulse Resp B/P Pulse Ox O2 Delivery O2 Flow Rate FiO2 07/17/17 13:36 36.9 88 27 174/100 99 Room Air Exam Oriented person and place. No distress. Fluent speech. Normal affect. His affect is fairly normal but he is somewhat confused. He thinks it is either 2011 or 2019. Normal skull. Normal nose and ears. Anicteric sclera, symmetric pupils Oropharynx is unremarkable, no facial droop. Patient has no teeth. Neck is supple, normal thyroid. No adenopathy. Lungs are clear, normal effort rate. Heart is regular without murmur gallop or rub. Abdomen soft, nondistended or tender. Extremities are free of pedal edema. Good radial and pedal pulses. Skin is free of rash, lesions. No petechiae or ecchymosis. Joints are grossly normal. Cranial nerves are grossly normal. Motor strength is normal in all extremities. Normal muscular tone. Lab and Diagnostics Labs Initial lactic acid 4.9, repeat after fluids at 3.0. She will bicarbonate was 16 with an anion gap acidosis. Ketones negative. Result Diagram: 07/17/1792407/17/17924 X-Rays, CTs and MRIs PROCEDURE: CT ANG CHEST/ABD/PEL W/WO CIBTRAST ([id number]) INDICATIONS: chest pain/abd pain/ altered mental status TECHNIQUE: Precontrast 5 mm thick sections acquired from the lung apices to the iliac crests. After the administration of intravenous contrast, 3 mm thick sections again acquired from the lung apices to the iliac crests. 3-dimensional maximum intensity projection (MIP) oblique sagittal and coronal reformats were then acquired, and/or 3-dimensional volume rendering reformats. For radiation dose reduction, the following was used: automated exposure control. COMPARISON: [facility], CT, CT ABD PELVIS WO CON, 10/01/2016, 19: 47. FINDINGS: Image quality: Diagnostic Arteries: The thoracic and abdominal aorta demonstrates mild areas of atherosclerotic irregularity. No evidence of aneurysm, dissection, or occlusion is present. No perivascular edema, hematoma, or other abnormality is evident. The major branch vessels of the thoracic aorta are widely patent. However, there is moderate atherosclerotic calcification noted at the origin of the left vertebral artery, which arises directly from the aortic arch. The other more distal portions of the arch vessels are not adequately seen or included on this exam. The celiac artery, superior mesenteric artery, bilateral renal arteries, and inferior mesenteric artery are widely patent and otherwise within normal limits without significant atherosclerotic irregularity or occlusion. There is mild atherosclerosis noted involving the bilateral common iliac arteries without aneurysm or dissection. The external and internal iliac arteries are widely patent. The imaged portions of the common femoral arteries, profunda femoral arteries, and superficial femoral arteries are widely patent and otherwise unremarkable. CHEST: Lungs and pleura: No acute airspace opacities. No pleural effusions or pneumothorax. Central and peripheral airways are patent and normal in caliber. There is a 5 mm nodule identified along the major pulmonary fissure within the anterior aspect of the right upper lobe. An additional adjacent pleural- based nodule is seen along the fissure itself (image 30, series 10). Mild scarring within the right middle lobe and lingula versus focal atelectasis is present. Mediastinum: The heart is normal in size without pericardial effusion. Coronary artery atherosclerosis is present. The main pulmonary arterial trunk is not enlarged. No large pulmonary emboli are identified. There is no mediastinal mass. No hilar or mediastinal adenopathy is present. There is fluid noted to be located within the esophagus. A small hiatal hernia is present. Bones and chest wall: No axillary adenopathy by size criteria. Thyroid gland is not enlarged. No suspicious bony lesions. Age-appropriate degenerative changes of the imaged spine are present. No vertebral body compression fractures. ABDOMEN: Solid organs: The liver is somewhat hypodense, when compared to the spleen. No definite liver lesions are identified. The portal vein is widely patent. The gallbladder is not enlarged. The spleen is unremarkable. The adrenals are normal in size. The kidneys are within normal limits. There is no hydronephrosis. No renal calculi are evident. The ureters are not significantly dilated. The pancreas demonstrates atrophy and without definite lesion or surrounding inflammation. Peritoneum and bowel: A small hiatal hernia is present. The stomach is otherwise unremarkable. The duodenum and remainder of the small bowel loops are nondilated. The appendix is well-visualized and normal. Distal colonic diverticulosis is present without significant surrounding inflammation to suggest acute diverticulitis. There is no bowel obstruction. No free fluid, loculated fluid collection or free air is evident. Nodes and vessels: No retroperitoneal or mesenteric adenopathy by size criteria. Inferior vena cava is normal in morphology. Bones: No suspicious bony lesions. No vertebral body compression fractures. Age-appropriate degenerative changes of the lumbar spine are present. PELVIS: Soft tissues: No free fluid or loculated fluid collection is evident. There is no lymphadenopathy. No inguinal hernias are identified. The urinary bladder is grossly unremarkable. The prostate is not significantly enlarged. Bones: No acute fracture or suspicious osseous lesion is evident. Mild degenerative changes of the sacroiliac joints and bilateral hips are present. There is no dislocation. IMPRESSION: 1. Mild atherosclerosis of the thoracic and abdominal aorta without evidence of aneurysm, dissection, rupture, or occlusion. 2. Mild atherosclerotic changes are noted involving the iliac arteries. No high-grade stenosis or aneurysm. 3. Moderate atherosclerotic irregularity at the origin of the left vertebral artery is not well characterized. 4. No acute abnormality is appreciated within the chest, abdomen, or pelvis. 5. Small hiatal hernia with a fluid-filled esophagus. Please correlate clinically for gastroesophageal reflux and/or esophagitis. 6. Probable hepatic steatosis. 7. 5 mm nodule along the major fissure of the right lung. Please consider followup CT imaging of the chest in 6-12 months. 8. Mild colonic diverticulosis without diverticulitis. No bowel obstruction. 9: Coronary artery atherosclerotic changes. Dictated by: Griffin Acevedo M.D. on 07/17/2017 at 11:40 Approved by: Griffin Acevedo M.D. on 07/17/2017 at 11:58 Date of Service: 07/17/17 0930 PROCEDURE: CT BRAIN WITHOUT CONTRAST ([id number]) INDICATIONS: altered mental status TECHNIQUE: Noncontrast 4.5 mm thick angled axial sections acquired from the foramen magnum to the vertex, with coronal reformats. COMPARISON: [facility], CT, CT BRAIN WO CON, 10/02/2016, 3:07. FINDINGS: Image quality: Diagnostic. Mild motion artifact is present through the mid aspect of the head. Brain: There is no acute intra-axial or extra-axial hemorrhage. Volume averaging artifact is noted along the anterior left frontal lobe related to the overlying calvarium, which next a hemorrhage. However, this is not felt to represent a subdural hematoma as it is only seen on a single image (image 17, series 2). Additional areas of artifact mimicking hemorrhage are seen overlying the subarachnoid region of the left frontal/parietal regions (image 20 , series 2), which is felt to be attributable to motion artifact. Additional areas of mild motion artifact are present. No extra-axial fluid collection is identified. There is no midline shift or mass effect. The orbits are grossly unremarkable. No large areas of diffusely decreased attenuation are evident within the brain to suggest diffuse cerebral edema. No focal parenchymal abnormality is identified. The ventricles and cortical sulci are age-appropriate. Bones: Calvarium and visualized facial bones are grossly intact. The imaged paranasal sinuses and mastoid air cells are clear. IMPRESSION: Essentially unremarkable head CT. No convincing evidence of acute intracranial hemorrhage. If the patient's neurological symptoms persist, please consider obtaining a repeat head CT. Dictated by: Griffin Acevedo M.D. on 07/17/2017 at 11:36 Approved by: Griffin Acevedo M.D. on 07/17/2017 at 11:39 Chest x-ray is normal Assessment & Plan #. Septic encephalopathy, POA and active. Will treat patient for probable systemic infection with manifestation of leukocytosis and lactic acidosis. The patient will be called with empiric antibiotics. The lumbar puncture was performed before antibiotics but cultures are drawn and pending as is a urine culture. Urine dip is unremarkable. #. Lactic acidosis, POA and active. This likely relates to volume depletion and possibly a systemic infection which is yet to be identified. We will continue fluid resuscitation and empiric antibiotics as well as trend lactic acid levels. #. Diabetes mellitus 2, POA and uncontrolled. We will initially treat the patient with partial lispro as well as Lantus 20 now 1 time daily at bedtime. Patient was fluid resuscitated with normal saline as well. #. Hypokalemia, POA. We will replete and follow. #. Distant history of C. difficile toxin colitis. Not POA were active. We will be vigilant for evidence of colitis. #. Volume depletion, POA and active. Fluid resuscitation. Patient is full resuscitation. Patient is admitted observation status with an anticipated length of stay of one night. Time spent 40 minutes Ghulam Carey MD Jul 17, 2017 14:47
[2017-07-17] MEDS ORDERED: Polyethylene Glycol (PEG) 17 Gm Powder PO PRN (14:55)
[2017-07-17] MEDS: 0.9% Sodium Chloride 1,000 ML IV SCH (15:17)
[2017-07-17 15:19] LABS: APPEARANCE,CSF CLEAR (CLEAR); COLOR,CSF COLORLESS (COLORLESS); WHITE BLOOD CELL,CSF 2 /mm3 (0-5)
[2017-07-17 15:31] LABS: TROPONIN T < 0.010 ug/L (0.0-0.011)
[2017-07-17] MEDS ORDERED: Glucose 40% Oral Gel 15 Gm Tube PO PRN (15:50)
[2017-07-17] MEDS ORDERED: Insulin GLARgine 100 Unit/mL Syringe SUBQ ONE (15:50)
[2017-07-17] MEDS ORDERED: Vancomycin Inj 1,750 MG in 0.9% Sodium Chloride 500 ML IV ONE (16:00)
[2017-07-17] MEDS ORDERED: Dextrose 10% 250 ML IV PRN (16:10)
--- NOTE | 2017-07-17 16:41 | NUR ---
Admit Pt admitted to [facility] from ER with ROOM SERVER at 1530. Pt A&Ox2, unknown date, vitals stable other than hypertensive, somewhat unsteady gait with a shuffle walk from [place] to bed. Pt oriented to room and call light, reminded to call when wanting to get up. All belongings brought with including cane. Admit to be done now and medications sent to pharmacy. Tele placed and in SR 90's.
[2017-07-17] MEDS: Heparin 5,000 Unit/mL Inj SUBQ SCH ×2 (17:19→23:38)
[2017-07-17] MEDS: Insulin LISPRO 300 Unit/3 mL Inj SUBQ SCH ×2 (18:06→22:00)
[2017-07-17 20:44] LABS: APPEARANCE,URINE CLEAR (CLEAR,HAZY); COLOR,URINE YELLOW (YELLOW); PH,URINE 5.5 (5.0-8.0)
[2017-07-17 20:45] LABS: OCCULT BLOOD,URINE TRACE (NEGATIVE); UROBILINOGEN,URINE NORMAL (NORMAL)
[2017-07-17] MEDS: Insulin GLARgine 100 Unit/mL Syringe SUBQ SCH (22:06)
[2017-07-17] MEDS ORDERED: hydrOXYzine Pamoate 25 mg Capsule PO PRN (22:25)
[2017-07-17] MEDS ORDERED: Potassium Chloride Oral 20 mEq SR Tab(K 3 - 3.7 & Creat < 2) PO ONE (23:25)
[2017-07-18] VITALS (8 sets, daily range): BP systolic 131–164; BP diastolic 80–104; PULSE 71–84; RESP 16–18; O2SAT 96–99
[2017-07-18 04:17] LABS: BASOPHILS % (AUTO) 0.2 % (0-3); EOSINOPHILS % (AUTO) 0.5 % (0-5); Mean Corpuscular Hemoglobin 29.8 pg (27.0-35.0); Mean Corpuscular Volume 81.7 fL (81-100); NEUTROPHILS % (AUTO) 55.1 % (40-74); Platelet Count 214 bil/L (150-400)
[2017-07-18] MEDS: 0.9% Sodium Chloride 1,000 ML IV SCH ×2 (04:58→16:25)
--- NOTE | 2017-07-18 07:30 | NUR ---
Mentation/Pain/Labs Pt continues to be oriented to self and place, not year, consistent w/ safety check report. Pt is pleasant and compliant w/ care, using call light for the most part and voicing needs. Brandyn alarm on for safety d/t some impulsiveness. Pt c/o 04/09 headache, checked w/ MD before giving Morphine d/t AMS, MD ordered home Tramadol which appeared to have good effect, though pt would only intermittently sleep, also medicated for nausea x1. Potassium critical, reported to MD and was repeated. Still low but not critical. MD ordered replacement protocol. This morning potassium has normalized.
[2017-07-18] MEDS: Insulin LISPRO 300 Unit/3 mL Inj SUBQ SCH ×4 (08:00→21:07)
--- NOTE | 2017-07-18 08:46 | NUR ---
Gait/Mentation Pt unsteady to bathroom, SBA, pt alert to self, family only. Pt does not recall this present year, recalls past years for birthdates of self and family. Care continues.
[2017-07-18] MEDS: BusPIRone 15 mg Dividose Tablet PO SCH ×3 (08:54→21:23)
[2017-07-18] MEDS: DULoxetine 30 mg DR Capsule PO SCH (08:55)
--- NOTE | 2017-07-18 09:26 | PCM.PNMED ---
Subjective Date of Service Jul 18, 2017 Subjective He feels much better today. Less fatigued. He is still having some photophobia. His CSF was unremarkable at lumbar puncture. He denies headache. He also denies weakness of arms or legs or difficulty speaking. The CT head was unremarkable. He only had cannabinoids in his urine toxicity testing. He denies any cough, shortness of breath or chest pain. No nausea, abdominal pain or diarrhea. No urinary complaints. No overnight events. Exam Vital Signs Vital Sign - Last Date Time Temp Pulse Resp B/P Pulse Ox O2 Delivery O2 Flow Rate FiO2 07/18/17 08:20 36.7 74 16 131/102 97 Room Air Intake and Output 07/17/17 07/17/17 07/18/17 Cumulative From/Thru 15:00 23:00 07:00 07/17/17 09:13 - 07/18/17 06:44 Intake Total 3000 ml 941 ml 600 ml 4541 ml Output Total 475 ml 0 ml 450 ml 925 ml Balance 2525 ml 941 ml 150 ml 3616 ml Intake Oral 0 ml 600 ml 600 ml IV Total 3000 ml 941 ml 3941 ml Output Urine Total 475 ml 0 ml 450 ml 925 ml # Voids 2 2 # Bowel Movements 4 4 Exam Alert and oriented to person and place, but thinks it is 2012, no distress. Fluent speech Anicteric sclera. Lungs are clear with normal rate and effort Heart is regular without murmur gallop or rub Abdomen soft nontender, flat Extremities are free of edema. Skin is free of rash or lesions. Normal cranial nerves, normal motor strength in arms and legs. IVs and Medications Medications Reviewed: Medications were reviewed in detail Lab and Diagnostics Result Diagram: 07/18/17 0345 07/18/17 0345 X-Rays, CTs and MRIs PROCEDURE: CT ANG CHEST/ABD/PEL W/WO CIBTRAST ([id number]) INDICATIONS: chest pain/abd pain/ altered mental status TECHNIQUE: Precontrast 5 mm thick sections acquired from the lung apices to the iliac crests. After the administration of intravenous contrast, 3 mm thick sections again acquired from the lung apices to the iliac crests. 3-dimensional maximum intensity projection (MIP) oblique sagittal and coronal reformats were then acquired, and/or 3-dimensional volume rendering reformats. For radiation dose reduction, the following was used: automated exposure control. COMPARISON: [facility], CT, CT ABD PELVIS WO CON, 10/01/2016, 19: 47. FINDINGS: Image quality: Diagnostic Arteries: The thoracic and abdominal aorta demonstrates mild areas of atherosclerotic irregularity. No evidence of aneurysm, dissection, or occlusion is present. No perivascular edema, hematoma, or other abnormality is evident. The major branch vessels of the thoracic aorta are widely patent. However, there is moderate atherosclerotic calcification noted at the origin of the left vertebral artery, which arises directly from the aortic arch. The other more distal portions of the arch vessels are not adequately seen or included on this exam. The celiac artery, superior mesenteric artery, bilateral renal arteries, and inferior mesenteric artery are widely patent and otherwise within normal limits without significant atherosclerotic irregularity or occlusion. There is mild atherosclerosis noted involving the bilateral common iliac arteries without aneurysm or dissection. The external and internal iliac arteries are widely patent. The imaged portions of the common femoral arteries, profunda femoral arteries, and superficial femoral arteries are widely patent and otherwise unremarkable. CHEST: Lungs and pleura: No acute airspace opacities. No pleural effusions or pneumothorax. Central and peripheral airways are patent and normal in caliber. There is a 5 mm nodule identified along the major pulmonary fissure within the anterior aspect of the right upper lobe. An additional adjacent pleural- based nodule is seen along the fissure itself (image 30, series 10). Mild scarring within the right middle lobe and lingula versus focal atelectasis is present. Mediastinum: The heart is normal in size without pericardial effusion. Coronary artery atherosclerosis is present. The main pulmonary arterial trunk is not enlarged. No large pulmonary emboli are identified. There is no mediastinal mass. No hilar or mediastinal adenopathy is present. There is fluid noted to be located within the esophagus. A small hiatal hernia is present. Bones and chest wall: No axillary adenopathy by size criteria. Thyroid gland is not enlarged. No suspicious bony lesions. Age-appropriate degenerative changes of the imaged spine are present. No vertebral body compression fractures. ABDOMEN: Solid organs: The liver is somewhat hypodense, when compared to the spleen. No definite liver lesions are identified. The portal vein is widely patent. The gallbladder is not enlarged. The spleen is unremarkable. The adrenals are normal in size. The kidneys are within normal limits. There is no hydronephrosis. No renal calculi are evident. The ureters are not significantly dilated. The pancreas demonstrates atrophy and without definite lesion or surrounding inflammation. Peritoneum and bowel: A small hiatal hernia is present. The stomach is otherwise unremarkable. The duodenum and remainder of the small bowel loops are nondilated. The appendix is well-visualized and normal. Distal colonic diverticulosis is present without significant surrounding inflammation to suggest acute diverticulitis. There is no bowel obstruction. No free fluid, loculated fluid collection or free air is evident. Nodes and vessels: No retroperitoneal or mesenteric adenopathy by size criteria. Inferior vena cava is normal in morphology. Bones: No suspicious bony lesions. No vertebral body compression fractures. Age-appropriate degenerative changes of the lumbar spine are present. PELVIS: Soft tissues: No free fluid or loculated fluid collection is evident. There is no lymphadenopathy. No inguinal hernias are identified. The urinary bladder is grossly unremarkable. The prostate is not significantly enlarged. Bones: No acute fracture or suspicious osseous lesion is evident. Mild degenerative changes of the sacroiliac joints and bilateral hips are present. There is no dislocation. IMPRESSION: 1. Mild atherosclerosis of the thoracic and abdominal aorta without evidence of aneurysm, dissection, rupture, or occlusion. 2. Mild atherosclerotic changes are noted involving the iliac arteries. No high-grade stenosis or aneurysm. 3. Moderate atherosclerotic irregularity at the origin of the left vertebral artery is not well characterized. 4. No acute abnormality is appreciated within the chest, abdomen, or pelvis. 5. Small hiatal hernia with a fluid-filled esophagus. Please correlate clinically for gastroesophageal reflux and/or esophagitis. 6. Probable hepatic steatosis. 7. 5 mm nodule along the major fissure of the right lung. Please consider followup CT imaging of the chest in 6-12 months. 8. Mild colonic diverticulosis without diverticulitis. No bowel obstruction. 9: Coronary artery atherosclerotic changes. Dictated by: Griffin Acevedo M.D. on 07/17/2017 at 11:40 Approved by: Griffin Acevedo M.D. on 07/17/2017 at 11:58 Date of Service: 07/17/17 0930 PROCEDURE: CT BRAIN WITHOUT CONTRAST ([id number]) INDICATIONS: altered mental status TECHNIQUE: Noncontrast 4.5 mm thick angled axial sections acquired from the foramen magnum to the vertex, with coronal reformats. COMPARISON: [facility], CT, CT BRAIN WO CON, 10/02/2016, 3:07. FINDINGS: Image quality: Diagnostic. Mild motion artifact is present through the mid aspect of the head. Brain: There is no acute intra-axial or extra-axial hemorrhage. Volume averaging artifact is noted along the anterior left frontal lobe related to the overlying calvarium, which next a hemorrhage. However, this is not felt to represent a subdural hematoma as it is only seen on a single image (image 17, series 2). Additional areas of artifact mimicking hemorrhage are seen overlying the subarachnoid region of the left frontal/parietal regions (image 20 , series 2), which is felt to be attributable to motion artifact. Additional areas of mild motion artifact are present. No extra-axial fluid collection is identified. There is no midline shift or mass effect. The orbits are grossly unremarkable. No large areas of diffusely decreased attenuation are evident within the brain to suggest diffuse cerebral edema. No focal parenchymal abnormality is identified. The ventricles and cortical sulci are age-appropriate. Bones: Calvarium and visualized facial bones are grossly intact. The imaged paranasal sinuses and mastoid air cells are clear. IMPRESSION: Essentially unremarkable head CT. No convincing evidence of acute intracranial hemorrhage. If the patient's neurological symptoms persist, please consider obtaining a repeat head CT. Dictated by: Griffin Acevedo M.D. on 07/17/2017 at 11:36 Approved by: Griffin Acevedo M.D. on 07/17/2017 at 11:39 Chest x-ray is normal Assessment & Plan #. Septic encephalopathy, POA and improving. There is no clear infectious etiology. At this point we will obtain an MRI of the brain to rule out occult stroke. #. Lactic acidosis, POA and resolved. This appears to have related to volume depletion. #. Diabetes mellitus 2, POA and CONTROLLED. Continue glargine and lispro #. Hypokalemia, POA and resolved. Follow #. Distant history of C. difficile toxin colitis. No evidence of current activity. #. Volume depletion, POA and resolved Patient is full resuscitation. Patient is admitted observation status and we will readdress this after MRI results are available. Ghulam Carey MD Jul 18, 2017 09:26
--- NOTE | 2017-07-18 09:54 | DRSVH ---
PROCEDURE: MRI BRAIN WITHOUT CONTRAST ([id number]) INDICATIONS: confusion TECHNIQUE: Noncontrast axial T1 spin echo, axial T2 fast spin echo, sagittal and axial FLAIR, coronal T2 fast sp in echo, axial gradient echo, axial diffusion and ADC through the brain. COMPARISON: [facility], CT, CT BRAIN WO CON, 07/17/2017, 12:10. FINDINGS: Image quality: Partially degraded by motion artifact. CSF Spaces: Basal cisterns are patent. No extra-axial fluid collections. Ventricles are normal in size and shape. Brain: No intracranial masses or hemorrhage. Capellan/white matter interface is normal. Brainstem appe ars normal. Diffusion-weighted images demonstrate no acute ischemic insult. No chronic ischemic ins ults. Normal intravascular flow voids are present. Skull and face: Calvarium has normal marrow signal. Orbits appear normal. Sinuses: Sinuses and mastoids are clear. IMPRESSION: 1. Limited examination demonstrating no acute process. No recent infarct. No explanation for confusi on. Dictated by: Marivel Gloria M.D. on 07/18/2017 at 9:51 Approved by: Marivel Gloria M.D. on 07/18/2017 at 9:53
[2017-07-18] MEDS: Pantoprazole 20 mg ER24 Tablet PO SCH (11:41)
[2017-07-18] MEDS: Heparin 5,000 Unit/mL Inj SUBQ SCH ×2 (11:42→17:51)
[2017-07-18] MEDS: Insulin GLARgine 100 Unit/mL Syringe SUBQ SCH (21:24)
[2017-07-19] MEDS: 0.9% Sodium Chloride 1,000 ML IV SCH ×2 (00:23→06:53)
[2017-07-19] MEDS: Heparin 5,000 Unit/mL Inj SUBQ SCH ×2 (00:24→08:30)
[2017-07-19 04:20] VITALS: BP 140/93; PULSE 76; RESP 15; O2SAT 97
--- NOTE | 2017-07-19 05:00 | NUR ---
Mentation: Alert and oriented X3, pleasant and cooperative with care. Very passive. VSS. Uneventful shift. Using call hayes appropriately.
[2017-07-19 05:43] VITALS: PULSE 89
[2017-07-19] MEDS: Insulin LISPRO 300 Unit/3 mL Inj SUBQ SCH (08:00)
[2017-07-19 09:56] VITALS: PULSE 81
[2017-07-19] MEDS ORDERED: Potassium Chloride 20 mEq SR Tablet PO ONE (10:25)
[2017-07-19] MEDS: DULoxetine 30 mg DR Capsule PO SCH (11:04)
[2017-07-19] MEDS: BusPIRone 15 mg Dividose Tablet PO SCH (11:05)
[2017-07-19] MEDS: Pantoprazole 20 mg ER24 Tablet PO SCH (11:06)
--- NOTE | 2017-07-19 11:44 | PCM.DIMED ---
Discharge Instructions Date of Service Jul 19, 2017 Dates of Hospitalization Jul 17, 2017 at 14:26 Discharge Diagnosis Discharge Diagnosis #. Septic encephalopathy, resolved. #. Lactic acidosis, resolved. #. Uncontrolled Diabetes mellitus 2, resolved.. #. Hypokalemia, resolved. #. Volume depletion, resolved. #. Diarrhea, resolved. Diet Discharge Diet: Diabetic Activity Discharge Activity: No restrictions Patient Instructions Patient Instructions See her doctor within a week and have them order another basic metabolic panel lab tests. Follow-up Provider: Jamie Mora MD Follow-up with PCP in: 1 week Ghulam Carey MD Jul 19, 2017 11:44
--- NOTE | 2017-07-19 18:17 | NUR ---
Social Work Note: Initial Assessment/Discharge Data& Assessment: EMR reviewed. Per MD in multidisciplinary rounds, pt is medically ready to discharge home via POV. MANAGER OF CARE met with pt at bedside to confirm discharge plan and assess for any unmet needs, MANAGER OF CARE role explained and Discharge Planning Checklist packet provided. Ale Lane is a 51 year old male admitted on 07/17/2017 for AMS and lactic acidosis. Per MD pt is medically improved and ready for discharge. MD does not identify any concerns with pt capacity for self care. Pt positive for THC, TCA and opiates per ED Summary report. MD does not identify CD order as appropriate at this time. Pt lives in [place] with his roommate and is independent with all ADL's and uses a cane for ambulation. Pt has had [facility] in the past. Pt does not have SNF hx, LTC insurance or VA benefits. Pt declined DPOA/AD paperwork. Pt requested Medicaid transport. MANAGER OF CARE confirmed with [employer] that pt has transport benefit available to him and arranged for taxi to meet him in the front Lobby this afternoon at 3p.m.. RN notified. Pt denies any other needs. No other MD orders or discharge needs identified. Plan: Per MD pt is medically ready to discharge home via Medicaid transport. Pt denies any other needs. No other MD orders or discharge needs identified. CHEIKH Bolaños Addendum: 07/19/17 at 1822 by LEIF VOGEL Amended: Links added.
--- NOTE | 2017-07-21 15:53 | PCM.DC.MED ---
Discharge Summary Date of Service Jul 19, 2017 Dates of Hospitalization Date of Hospital Admission Jul 17, 2017 at 14:26 Date of Discharge: Jul 19, 2017 Providers: Admitting Physician: Ghulam Carey MD Primary Care Physician: Bhavani Galeano MD Attending Physician: Ghulam Carey MD Diagnosis at Time of Discharge Diagnosis at Time of Discharge #. Septic encephalopathy, resolved. #. Lactic acidosis, resolved. #. Uncontrolled Diabetes mellitus 2, resolved.. #. Hypokalemia, resolved. #. Volume depletion, resolved. #. Diarrhea, resolved. Consultations None Procedures XRay, CTs & MRIs PROCEDURE: CT ANG CHEST/ABD/PEL W/WO CIBTRAST ([id number]) INDICATIONS: chest pain/abd pain/ altered mental status TECHNIQUE: Precontrast 5 mm thick sections acquired from the lung apices to the iliac crests. After the administration of intravenous contrast, 3 mm thick sections again acquired from the lung apices to the iliac crests. 3-dimensional maximum intensity projection (MIP) oblique sagittal and coronal reformats were then acquired, and/or 3-dimensional volume rendering reformats. For radiation dose reduction, the following was used: automated exposure control. COMPARISON: [facility], CT, CT ABD PELVIS WO CON, 10/01/2016, 19: 47. FINDINGS: Image quality: Diagnostic Arteries: The thoracic and abdominal aorta demonstrates mild areas of atherosclerotic irregularity. No evidence of aneurysm, dissection, or occlusion is present. No perivascular edema, hematoma, or other abnormality is evident. The major branch vessels of the thoracic aorta are widely patent. However, there is moderate atherosclerotic calcification noted at the origin of the left vertebral artery, which arises directly from the aortic arch. The other more distal portions of the arch vessels are not adequately seen or included on this exam. The celiac artery, superior mesenteric artery, bilateral renal arteries, and inferior mesenteric artery are widely patent and otherwise within normal limits without significant atherosclerotic irregularity or occlusion. There is mild atherosclerosis noted involving the bilateral common iliac arteries without aneurysm or dissection. The external and internal iliac arteries are widely patent. The imaged portions of the common femoral arteries, profunda femoral arteries, and superficial femoral arteries are widely patent and otherwise unremarkable. CHEST: Lungs and pleura: No acute airspace opacities. No pleural effusions or pneumothorax. Central and peripheral airways are patent and normal in caliber. There is a 5 mm nodule identified along the major pulmonary fissure within the anterior aspect of the right upper lobe. An additional adjacent pleural- based nodule is seen along the fissure itself (image 30, series 10). Mild scarring within the right middle lobe and lingula versus focal atelectasis is present. Mediastinum: The heart is normal in size without pericardial effusion. Coronary artery atherosclerosis is present. The main pulmonary arterial trunk is not enlarged. No large pulmonary emboli are identified. There is no mediastinal mass. No hilar or mediastinal adenopathy is present. There is fluid noted to be located within the esophagus. A small hiatal hernia is present. Bones and chest wall: No axillary adenopathy by size criteria. Thyroid gland is not enlarged. No suspicious bony lesions. Age-appropriate degenerative changes of the imaged spine are present. No vertebral body compression fractures. ABDOMEN: Solid organs: The liver is somewhat hypodense, when compared to the spleen. No definite liver lesions are identified. The portal vein is widely patent. The gallbladder is not enlarged. The spleen is unremarkable. The adrenals are normal in size. The kidneys are within normal limits. There is no hydronephrosis. No renal calculi are evident. The ureters are not significantly dilated. The pancreas demonstrates atrophy and without definite lesion or surrounding inflammation. Peritoneum and bowel: A small hiatal hernia is present. The stomach is otherwise unremarkable. The duodenum and remainder of the small bowel loops are nondilated. The appendix is well-visualized and normal. Distal colonic diverticulosis is present without significant surrounding inflammation to suggest acute diverticulitis. There is no bowel obstruction. No free fluid, loculated fluid collection or free air is evident. Nodes and vessels: No retroperitoneal or mesenteric adenopathy by size criteria. Inferior vena cava is normal in morphology. Bones: No suspicious bony lesions. No vertebral body compression fractures. Age-appropriate degenerative changes of the lumbar spine are present. PELVIS: Soft tissues: No free fluid or loculated fluid collection is evident. There is no lymphadenopathy. No inguinal hernias are identified. The urinary bladder is grossly unremarkable. The prostate is not significantly enlarged. Bones: No acute fracture or suspicious osseous lesion is evident. Mild degenerative changes of the sacroiliac joints and bilateral hips are present. There is no dislocation. IMPRESSION: 1. Mild atherosclerosis of the thoracic and abdominal aorta without evidence of aneurysm, dissection, rupture, or occlusion. 2. Mild atherosclerotic changes are noted involving the iliac arteries. No high-grade stenosis or aneurysm. 3. Moderate atherosclerotic irregularity at the origin of the left vertebral artery is not well characterized. 4. No acute abnormality is appreciated within the chest, abdomen, or pelvis. 5. Small hiatal hernia with a fluid-filled esophagus. Please correlate clinically for gastroesophageal reflux and/or esophagitis. 6. Probable hepatic steatosis. 7. 5 mm nodule along the major fissure of the right lung. Please consider followup CT imaging of the chest in 6-12 months. 8. Mild colonic diverticulosis without diverticulitis. No bowel obstruction. 9: Coronary artery atherosclerotic changes. Dictated by: Griffin Acevedo M.D. on 07/17/2017 at 11:40 Approved by: Griffin Acevedo M.D. on 07/17/2017 at 11:58 Date of Service: 07/17/17 0930 PROCEDURE: CT BRAIN WITHOUT CONTRAST ([id number]) INDICATIONS: altered mental status TECHNIQUE: Noncontrast 4.5 mm thick angled axial sections acquired from the foramen magnum to the vertex, with coronal reformats. COMPARISON: [facility], CT, CT BRAIN WO CON, 10/02/2016, 3:07. FINDINGS: Image quality: Diagnostic. Mild motion artifact is present through the mid aspect of the head. Brain: There is no acute intra-axial or extra-axial hemorrhage. Volume averaging artifact is noted along the anterior left frontal lobe related to the overlying calvarium, which next a hemorrhage. However, this is not felt to represent a subdural hematoma as it is only seen on a single image (image 17, series 2). Additional areas of artifact mimicking hemorrhage are seen overlying the subarachnoid region of the left frontal/parietal regions (image 20 , series 2), which is felt to be attributable to motion artifact. Additional areas of mild motion artifact are present. No extra-axial fluid collection is identified. There is no midline shift or mass effect. The orbits are grossly unremarkable. No large areas of diffusely decreased attenuation are evident within the brain to suggest diffuse cerebral edema. No focal parenchymal abnormality is identified. The ventricles and cortical sulci are age-appropriate. Bones: Calvarium and visualized facial bones are grossly intact. The imaged paranasal sinuses and mastoid air cells are clear. IMPRESSION: Essentially unremarkable head CT. No convincing evidence of acute intracranial hemorrhage. If the patient's neurological symptoms persist, please consider obtaining a repeat head CT. Dictated by: Griffin Acevedo M.D. on 07/17/2017 at 11:36 Approved by: Griffin Acevedo M.D. on 07/17/2017 at 11:39 Chest x-ray is normal Brain MRI is unremarkable. Invasive Procedures None Brief History This is a 51-year-old gentleman who lives with a roommate. He was brought in by family members because of confusion. History is provided primarily by the patient who is disoriented to year. He also has a son who is in some contact with him but does not have a lot of detailed information. The patient notes he has been sick for about 5 days with a mild headache and sore back. He has been more lethargic and had anorexia. He does have bipolar syndrome as well as diabetes. The patient has been checking his blood sugar very little and has not been taking medications for probably 3-4 days. He usually takes Lantus 10 units at bedtime 9 correctional Humalog but probably has not been taking this for several days either. He was found to be mildly hyperglycemic in the ER as well as having a metabolic acidosis with a positive lactic acid and negative ketones. The patient notes he has had some chronic hallucinations which are primarily auditory but denies any new problems with an escalation of hallucinations. He also denies any nausea, no vomiting. No visual changes. He denies any chest pain, cough, fevers, chills. He has been more lethargic and weak. He denies any diarrhea. He was incarcerated until about 4 years ago for extended time about 12 years. The patient was apparently admitted to [place] about 5 months ago with DKA and C. difficile toxin colitis as well as a possible pneumonia. His son notes she has a history of chronic marijuana use in a very distant history of cocaine use before incarceration. The patient denies any drug use other than the tramadol which is prescribed for pain. His U tox was positive only for opiates. The patient can provide no other specific details. Lumbar puncture reveals clear CSF in the ED. His vital signs are normal. CT of the chest and abdomen is unremarkable. CT of the head is unremarkable. Hospital Course #. Septic encephalopathy, POA and improving. The patient is admitted volume depleted with lactic acidosis and hyperglycemia. There is no clear source of infection. His skin of the chest and abdomen at time of admit was unremarkable and initial head CT was unremarkable. MRI was unremarkable ruling out an occult stroke. He did improve with fluid resuscitation and normalization of his diabetes as well as treatment of his blood pressure. #. Hypertension, POA and uncontrolled. The patient did present with mild hypertension and context of not taking medications for several days prior while having diarrhea. This improved with resuming his oral medications. #. Lactic acidosis, POA and resolved. The patient was fluid resuscitated for his fine depletion and lactic acidosis and did improve clinically. #. Diabetes mellitus 2, POA and CONTROLLED. The patient was initially hyperglycemic and was fluid resuscitated and treated with insulin including glargine and lispro. He did normalize his sugars and his mental status did improve. #. Hypokalemia, POA and resolved. Blood clots were repleted and followed carefully. #. Distant history of C. difficile toxin colitis. He had no diarrhea while in the hospital. #. Volume depletion, POA and resolved Patient is full resuscitation. Exam Vital Signs (Last) Date Time Temp Pulse Resp B/P Pulse Ox O2 Delivery O2 Flow Rate FiO2 07/19/17 09:56 81 07/19/17 04:20 36.8 15 140/93 97 Room Air Exam Patient was seen and examined on the day of discharge Test 07/17/17 09:25 07/17/17 09:47 07/17/17 12:44 07/17/17 14:40 Hold Villanueva Top Tube Received (Received) Prothrombin Time 11.0sec (8.1-12.5) Prothromb Time International Ratio 1.03ratio D-Dimer < 0.50mg/L FEU (<0.50) Hemoglobin A1c 7.4% (4.8-5.6) Osmolality 307 (275-300) Troponin T < 0.010ug/L (0.0-0.011) Lipase 9U/L (13-60) Salicylates Level < 3.0ug/mL (30-250) Acetaminophen Level < 15.0ug/mL Rx (10-25) Alcohols < 10mg/dL (0-10) Ketones Negative (Negative) Ammonia 27ug/dL (18-53) CSF Appearance Clear (CLEAR) CSF Color Colorless (COLORLESS) CSF WBC 2/mm3 (0-5) CSF RBC 0/mm3 CSF Mononuclear WBCs % CSF Polynuclear WBCs % CSF Other Cells CSF Glucose 164mg/dL (45-90) CSF Total Protein 47mg/dL (15-45) Test 07/17/17 20:32 07/17/17 23:15 07/18/17 03:45 07/19/17 08:33 Urine Color Yellow (YELLOW) Urine Appearance Clear (CLEAR,HAZY) Urine pH 5.5 (5.0-8.0) Urine Specific [place] 1.010 (1.003-1.035) Urine Protein Negativemg/dL (NEG,TRACE) Urine Glucose (UA) 500mg/dL (NEGATIVE) Urine Ketones Negativemg/dL (NEGATIVE) Urine Occult Blood Trace (NEGATIVE) Urine Nitrite Negative (NEGATIVE) Urine Bilirubin Negative (NEGATIVE) Urine Urobilinogen Normalmg/dL (NORMAL) Urine Leukocyte Esterase Negative (NEGATIVE) Urine RBC 0-2/hpf (0-2) Urine WBC 0-5/hpf (0-5) Urine Epithelial Cells Occasional/hpf (NONE-MOD) Urine Crystals None seen (NONE SEEN) Urine Bacteria None/hpf (NONE-FEW) Urine Hyaline Casts None/lpf (NONE) Urine Granular Casts None seen (NONE SEEN) Urine Waxy Casts None seen (NONE SEEN) Urine Red Blood Cell Casts None seen (NONE SEEN) Urine White Blood Cell Casts None seen (NONE SEEN) Urine Mucus None seen (None Seen) Urine Trichomonas None seen (NONE SEEN) Urine Yeast None (NONE SEEN) Urinalysis Comment None Urine Culture Reflexed Not indicated Urine Opiates Screen Negative Urine Methadone Screen Negative Urine Barbiturates Screen Negative Urine Amphetamines Screen Negative Urine Benzodiazepines Screen Negative Urine Cocaine Metabolite Screen Negative Urine Cannabinoids Screen Positive Lactic Acid Level 1.2mmol/L (0.4-2.0) White Blood Count 11.2th/mm3 (3.8-10.1) Red Blood Count 4.47mil/mm3 (4.40-5.80) Hemoglobin 13.3g/dL (13.8-17.2) Hematocrit 36.5% (41.0-50.0) Mean Corpuscular Volume 81.7fL (81-100) Mean Corpuscular Hemoglobin 29.8pg (27.0-35.0) Mean Corpuscular Hemoglobin Concent 36.4% (32.0-37.0) Red Cell Distribution Width 12.5% (12.3-15.4) Platelet Count 214bil/L (150-400) Neutrophils (%) (Auto) 55.1% (40-74) Lymphocytes (%) (Auto) 35.9% (14-46) Monocytes (%) (Auto) 8.0% (4-12) Eosinophils (%) (Auto) 0.5% (0-5) Basophils (%) (Auto) 0.2% (0-3) Procalcitonin 0.05ng/mL (0.00-0.08) Sodium Level 135mEq/L (134-144) Potassium Level 3.2mEq/L (3.5-5.2) Chloride Level 100mEq/L (97-108) Carbon Dioxide Level 19mmol/L (18-29) Blood Urea Nitrogen 12mg/dL (6-24) Creatinine 0.73mg/dL (0.76-1.27) Estimat Glomerular Filtration Rate 121mL/min (>59) Glucose Level 177mg/dL (60-99) Calcium Level 8.6mg/dL (8.5-10.1) Total Bilirubin 0.5mg/dL (0.0-1.2) Aspartate Amino Transf (AST/SGOT) 43U/L (0-50) Alanine Aminotransferase (ALT/SGPT) 43U/L (0-44) Alkaline Phosphatase 89U/L (25-150) Total Protein 6.3g/dL (6.4-8.4) Albumin 4.0g/dL (3.4-5.0) Discharge Medications Discharge Medications Atorvastatin Calcium (Atorvastatin Calcium) 20 Mg Tablet 20 MG PO DAILY ( Reported) Buspirone (Buspirone) 15 Mg Tablet 15 MG PO TID (Reported) Doxepin (Doxepin) 100 Mg Capsule 100 MG PO HS (Reported) Duloxetine (Duloxetine) 60 Mg Capsule.dr 120 MG PO DAILY (Reported) Hydroxyzine HCl (HydrOXYzine Hcl) 50 Mg Tablet 100 MG PO BID (Reported) Metoclopramide (Metoclopramide) 10 Mg Tablet 10 MG PO ACHS (Reported) Omeprazole (Omeprazole) 20 Mg Capsule.dr 20 MG PO DAILY (Reported) Pregabalin (Lyrica) 150 Mg Capsule 150 MG PO TID (Reported) Ziprasidone (Ziprasidone) 80 Mg Capsule 80 MG PO BID (Reported) As needed Dicyclomine (Dicyclomine) 20 Mg Tablet 40 MG PO QID PRN PRN For GI Cramps ( Reported) Hydroxyzine Pamoate (Vistaril) 25 Mg Capsule 25 MG PO DAILY PRN PRN For Anxiety (Reported) Insulin Glargine (Lantus U100 Insulin Vial) 100 Unit/Ml Vial 50 UNIT SUBQ DAILY PRN PRN Diabetes (Reported) Insulin Human Lispro (HumaLOG U100 Insulin Vial) 100 Unit/Ml Unit 15 UNIT SUBQ TIDWM PRN PRN diabetes (Reported) Check blood sugars before meals and at bedtime. Use correction factor only before meals. Blood Sugar Lispro Correction: <151, 0 units; 151-175, 1 unit; 176-200, 2 units; 201-225, 3 units; 226-250, 4 units; 251-275, 5 units; 276-300 , 6 units; 301-325, 7 units; 326-350, 8 units; 351-375, 9 units; 376-400, 10 units; >400, 12 units. Risperidone (Risperidone) 1 Mg Tablet 1 MG PO HS PRN PRN For Insomnia (Reported ) Tramadol (Tramadol) 50 Mg Tablet 50-100 MG PO TID PRN PRN For Pain (Reported) Followup Plan Disposition: Home Discharge Diet: Diabetic Discharge Activity: No restrictions Patient Instructions See her doctor within a week and have them order another basic metabolic panel lab tests. Follow-up Provider: Jamie Mora MD Follow-up with PCP in: 1 week Time spent 40 minutes Ghulam Carey MD Jul 21, 2017 15:53
[2017-08-07] MEDS ORDERED: 0.9% Sodium Chloride 1,000 ML IV SCH (09:25)
== END 2017-07-19 14:07 | disposition home or self-care (01) ==
LOC: SED 09:09 → PCC 14:26 → OBSVTOIN 14:26 → INTOOBSV 14:26
PROVIDERS: ADMIT Hospitalist; ATTEND Hospitalist
DX: G93.41 Metabolic encephalopathy (principal); E11.65 Type 2 diabetes mellitus with hyperglycemia; I10 Essential (primary) hypertension; E87.2 Acidosis; E87.6 Hypokalemia; R19.7 Diarrhea, unspecified; E86.9 Volume depletion, unspecified; F31.9 Bipolar disorder, unspecified; Z79.4 Long term (current) use of insulin; Z86.19 Personal history of other infectious and parasitic diseases; F17.210 Nicotine dependence, cigarettes, uncomplicated
CPT/HCPCS: 36415; 62270; 70450; 70551; 71010; 71275; 74174; 80053; 81000; 81002; 82009; 82140; 82945; 82948; 83036; 83605; 83690; 83930; 84132; 84145; 84484; 85025; 85378; 85610; 87040; 87070; 87205; 87496; 87498; 87529; 87532; 87653; 87798; 89051; 93005; 96361; 96365; 96366; 96367; 96372; 96375; 96376; 97162; 99285; G0378; G0481; J1644; J1815; J2270; J2405; J2543; J3370; J3480; J7030; J7040; Q9967; S0166

== ENCOUNTER 2017-08-27 11:47 | Observation (INO) | payer OTHER ==
[~2017-08-27] VITALS: Ht 167.6 cm; Wt 82.3 kg
[~2017-08-27 11:47] MED LIST changes: +BUSP15TA3 PO; -BUSP30TA2 PO; +DOXE100C4 PO; +DULO60CA61 PO; -FENO145T19 PO; -FLUO40CA PO; -GEMF600T3 PO
[2017-08-27 11:50] VITALS: BP 141/102; PULSE 100; RESP 20; O2SAT 100
[2017-08-27] MEDS ORDERED: 0.9% Sodium Chloride 1,000 ML IV ONE ×2 (12:06→14:00)
[2017-08-27] MEDS ORDERED: Ondansetron 2 mg/mL 2 mL Inj IVPUSH ONE (12:10)
--- NOTE | 2017-08-27 12:15 | ED.REPORT ---
HPI-General Illness Date of Service Aug 27, 2017 ED Provider: Radha Sahni MD Ale is a 51-year-old male with history of diabetes and DKA presenting to the emergency Department concerned that he is in DKA. Patient reports a one-day history of lightheadedness, vomiting, abdominal pain, headache. He reports normal blood glucose readings at home, but he stopped checking when he started feeling ill. He states this feels like the last time he was admitted for DKA. Denies chest pain, palpitations, shortness of breath, cough, urinary symptoms, bowel changes. Nursing Notes Stated Complaint: DIABETIC Chief Complaint: Diabetes Nursing Notes Reviewed: Yes Allergies: Coded Allergies: acetaminophen (Verified Allergy, Unknown, 08/27/17) aspirin (Verified Allergy, Unknown, rash, 08/27/17) Scheduled Atorvastatin Calcium (Atorvastatin Calcium) 20 Mg Tablet 20 MG PO DAILY Buspirone (Buspirone) 15 Mg Tablet 15 MG PO TID Doxepin (Doxepin) 100 Mg Capsule 100 MG PO HS Duloxetine (Duloxetine) 60 Mg Capsule.dr 120 MG PO DAILY Hydroxyzine HCl (HydrOXYzine Hcl) 50 Mg Tablet 100 MG PO BID Metoclopramide (Metoclopramide) 10 Mg Tablet 10 MG PO ACHS Omeprazole (Omeprazole) 20 Mg Capsule.dr 20 MG PO DAILY Pregabalin (Lyrica) 150 Mg Capsule 150 MG PO TID Ziprasidone (Ziprasidone) 80 Mg Capsule 80 MG PO BID Scheduled PRN Dicyclomine (Dicyclomine) 20 Mg Tablet 40 MG PO QID PRN PRN For GI Cramps Hydroxyzine Pamoate (Vistaril) 25 Mg Capsule 25 MG PO DAILY PRN PRN For Anxiety Insulin Glargine (Lantus U100 Insulin Vial) 100 Unit/Ml Vial 50 UNIT SUBQ DAILY PRN PRN Diabetes Insulin Human Lispro (HumaLOG U100 Insulin Vial) 100 Unit/Ml Unit 15 UNIT SUBQ TIDWM PRN PRN diabetes Check blood sugars before meals and at bedtime. Use correction factor only before meals. Blood Sugar Lispro Correction: <151, 0 units; 151-175, 1 unit; 176-200, 2 units; 201-225, 3 units; 226-250, 4 units; 251-275, 5 units; 276-300 , 6 units; 301-325, 7 units; 326-350, 8 units; 351-375, 9 units; 376-400, 10 units; >400, 12 units. Risperidone (Risperidone) 1 Mg Tablet 1 MG PO HS PRN PRN For Insomnia Tramadol (Tramadol) 50 Mg Tablet 50-100 MG PO TID PRN PRN For Pain General Time Seen by MD: 11:58 Chief Complaint Other (diabetes) Hx Obtained From: Patient Arrived By: Walk-in Sudden in Onset?: Yes Symptom Duration: Since onset Recent Healthcare: Recent doctor visit, Recent hospitalization Similar Sx Previous: Yes Past Medical History Past Medical History Admitted in December at [facility] with DKA and enterocolitis due to c.diff Schizoaffective disorder Chronic back pain HTN Reports: Diabetes mellitus, Hyperlipidemia Past Surgical History Hernia repair x3 and umbilical surgery Family History Noncontributory Smoking History Never Smoker Social History Renting room 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 Alcohol Use: Denies alcohol use Drug Use: Denies drug use, Meth Occupation disabled Ambulatory Status Independent Review of Systems General: Admits chills. Denies fever. HEENT: Denies congestion, headache, sore throat. Respiratory: Denies dyspnea, cough, shortness of breath, wheezing. Cardiovascular: Denies chest pain, palpitations. Gastrointestinal: Admits abdominal pain, vomiting. Denies diarrhea Genitourinary: Denies frequency, urgency, dysuria, hematuria. Otherwise as noted in HPI. Physical Exam General: Well appearing, well developed, well nourished, moderate distress. Head: Atraumatic, normocephalic. Eyes: No scleral icterus or injection. No discharge. Vision grossly intact. ENT: Voice clear, hearing grossly intact. Respiratory: Regular rate and rhythm. Breath sounds present, clear to auscultation and equal bilaterally. No respiratory distress. No increased work of breathing, speaks in complete sentences. Cardiovascular: Regular rate and rhythm, without murmur, gallop or rub. No pedal edema. Gastrointestinal: Abdomen flat with mild diffuse tenderness, without guarding or rebound. Bowel sounds normoactive. Skin: Warm and dry. Neurological: Grossly nonfocal. Psychological: Alert and oriented. Speech appropriate, linear and logical. Behavior appropriate. Vital Signs Vital Signs Date Time Temp Pulse Resp B/P Pulse Ox O2 Delivery O2 Flow Rate FiO2 08/27/17 11:50 36.4 100 20 141/102 100 Room Air Elevated blood pressure Initial VS: Reviewed Interpretation & Diagnostics Interpretation & Diagnostics: Urine dip shows nitrates protein glucose no leukocytes and no blood Lab Results Interpretation Result Diagram: 08/27/17 1230 08/27/17 1230 Test 08/27/17 12:30 08/27/17 14:06 White Blood Count 13.9th/mm3 (3.8-10.1) Red Blood Count 5.49mil/mm3 (4.40-5.80) Hemoglobin 16.2g/dL (13.8-17.2) Hematocrit 44.2% (41.0-50.0) Mean Corpuscular Volume 80.5fL (81-100) Mean Corpuscular Hemoglobin 29.5pg (27.0-35.0) Mean Corpuscular Hemoglobin Concent 36.7% (32.0-37.0) Red Cell Distribution Width 12.9% (12.3-15.4) Platelet Count 286bil/L (150-400) Neutrophils (%) (Auto) 74.5% (40-74) Lymphocytes (%) (Auto) 17.3% (14-46) Monocytes (%) (Auto) 7.8% (4-12) Eosinophils (%) (Auto) 0% (0-5) Basophils (%) (Auto) 0% (0-3) Sodium Level 133mEq/L (134-144) Potassium Level 3.2mEq/L (3.5-5.2) Chloride Level 90mEq/L (97-108) Carbon Dioxide Level 20mmol/L (18-29) Blood Urea Nitrogen 23mg/dL (6-24) Creatinine 0.96mg/dL (0.76-1.27) Estimat Glomerular Filtration Rate 88mL/min (>59) Glucose Level 304mg/dL (60-99) Calcium Level 10.0mg/dL (8.5-10.1) Total Bilirubin 1.1mg/dL (0.0-1.2) Aspartate Amino Transf (AST/SGOT) 18U/L (0-50) Alanine Aminotransferase (ALT/SGPT) 19U/L (0-44) Alkaline Phosphatase 121U/L (25-150) Total Protein 8.5g/dL (6.4-8.4) Albumin 5.0g/dL (3.4-5.0) Lipase 8U/L (13-60) Hold Villanueva Top Tube Received (Received) Ketones Negative (Negative) Urine Color Yellow (YELLOW) Urine Appearance Clear (CLEAR,HAZY) Urine pH 6.0 (5.0-8.0) Urine Specific [place] 1.030 (1.003-1.035) Urine Protein 100mg/dL (NEG,TRACE) Urine Glucose (UA) 1000mg/dL (NEGATIVE) Urine Ketones 80mg/dL (NEGATIVE) Urine Occult Blood Trace (NEGATIVE) Urine Nitrite Negative (NEGATIVE) Urine Bilirubin Negative (NEGATIVE) Urine Urobilinogen Normalmg/dL (NORMAL) Urine Leukocyte Esterase Negative (NEGATIVE) Urine RBC 0-2/hpf (0-2) Urine WBC 0-5/hpf (0-5) Urine Epithelial Cells Occasional/hpf (NONE-MOD) Urine Crystals None seen (NONE SEEN) Urine Bacteria None/hpf (NONE-FEW) Urine Hyaline Casts None/lpf (NONE) Urine Granular Casts None seen (NONE SEEN) Urine Waxy Casts None seen (NONE SEEN) Urine Red Blood Cell Casts None seen (NONE SEEN) Urine White Blood Cell Casts None seen (NONE SEEN) Urine Mucus Present (None Seen) Urine Trichomonas None seen (NONE SEEN) Urine Yeast None (NONE SEEN) Urinalysis Comment None Urine Culture Reflexed Not indicated X-Ray Chest Interpretation Chest Xray Interpretation: IMPRESSION: 1. No acute cardiopulmonary process is evident. 2. Minimal right linear midlung atelectasis. Dictated by: Griffin Acevedo M.D. on 08/27/2017 at 13:30 Approved by: Griffin Acevedo M.D. on 08/27/2017 at 13:31 View: Portable, 1 view Interpretation / Wet Read by: Interpret - Radiologist Re-Eval/Medical Decision Med Decision/Clinical Course Patient presents with nausea vomiting severe headache and hyperglycemia this been present for at least 12 hours. He has an anion gap of 23 is unable to keep food down and continues complain of significant head pain. Similar presentation about a month ago with negative infectious etiology workup. At this point I think that he is dehydrated enough that he is not going to be able to continue to correct with oral hydration. He is beginning to develop small breathing and I'm concerned that his early DKA is going to turn into florid DKA with longer stay if he is discharged home at this time. We will admit for additional hydration observation he is given 5 units of IV insulin at this point I don't think that he needs an insulin drip but will need close insulin monitoring. He will receive 2 L of normal saline in the emergency department and a 40 mEq piggyback bolus of IV potassium is initiated in the ER as well. I find no evidence of acute infection and antibiotics are not initiated Care is reviewed with the hospitalist and patient will be admitted. Have tried Toradol for the headache will try Tylenol as well. Reluctant to use narcotics in this setting. Source of Hx: Old records Consultation : Referral / Consult Name: Ximena Bills MD Consulted With: Hospitalist Call Returned at: 14:41 Rag Grader: Will see patient, Agrees with eval, Agrees with plan, Accepts admit Counseled Regarding: Diagnosis, Lab results, Need for admission Discharge & Departure Primary Impression: Hypokalemia Additional Impressions: Dehydration Nausea and vomiting Diabetic ketoacidosis Disposition: ADMITTED TO HOSPITAL Discharge Condition All VS Reviewed: Yes Condition: Stable Referrals: Bhavani Galeano MD (PCP) EDSupervising Provider for APC: Radha Sahni MD Attending Statement Patient seen and examined Small type breathing, mild confusion unclear what his baseline is. Complaining of severe headache, vomiting since yesterday. Was admitted to the hospital with similar findings about a month ago. No specific infectious etiology was found. He improved with rehydration. We had some difficulty getting IV access and fluids are being given slowly. Sugar is just above 300 however his anion gap is 23. He does not have ketones in his blood. Indicates he is a type II diabetic however he was diagnosed at the age of 13, has only been on insulin,and uses fairly small doses of insulin, much more consistent with type I. Patient is not sure which type of diabetes he does have. He does note he has been checking and he states his numbers of been in the 100 issue range until last night. In the ER currently he continues to complain of significant headache, nausea. He is not currently vomiting he is not currently having any diarrhea. Chest is completely clear, is mildly tachycardic, he does have kusmall type breathing, his belly is soft he is otherwise well perfused. Given the continued headache, persistent nausea. Anion gap of 23 and inability keep fluids down without like to admitted for dehydration and watch his sugar level and make sure that he doesn't develop into full diabetic ketoacidosis copies to: Bhavani Galeano MD, Seth PA-C Aug 27, 2017 12:15 Radha Sahni MD Aug 27, 2017 13:55 Marvin Robert Aug 27, 2017 14:09
[2017-08-27 12:48] LABS: BASOPHILS % (AUTO) 0 % (0-3); EOSINOPHILS % (AUTO) 0 % (0-5); MONOCYTES % (AUTO) 7.8 % (4-12); Mean Corpuscular Hemoglobin 29.5 pg (27.0-35.0); Mean Corpuscular Volume 80.5 fL (81-100); NEUTROPHILS % (AUTO) 74.5 % (40-74); Platelet Count 286 bil/L (150-400)
[2017-08-27] MEDS ORDERED: Potassium Chloride 20 mEq SR Tablet PO ONE (13:35)
[2017-08-27] MEDS ORDERED: MetoCLOpramide 5 mg/mL 2 mL Inj IM ONE (13:35)
[2017-08-27] MEDS ORDERED: KCl 40 mEq/D5W 500 mL 40 MEQ in IV Premix 1 EACH IV ONE (14:20)
[2017-08-27] MEDS ORDERED: Insulin Human REGular-Omnicell 100 Unit/mL IV ONE (14:20)
[2017-08-27 14:28] LABS: APPEARANCE,URINE CLEAR (CLEAR,HAZY); COLOR,URINE YELLOW (YELLOW)
[2017-08-27 14:29] LABS: OCCULT BLOOD,URINE TRACE (NEGATIVE); UROBILINOGEN,URINE NORMAL (NORMAL)
--- NOTE | 2017-08-27 14:32 | DRSVH ---
PROCEDURE: X-RAY CHEST ONE VIEW, PORTABLE ([id number]) INDICATIONS: cough TECHNIQUE: One view of the chest was acquired. COMPARISON: [facility], CR, XR CHEST 1VW (PORTABLE), 07/17/2017, 9:16. FINDINGS: Surgical changes and devices: None. Lungs and pleura: Mild focal linear atelectasis is identified within the right midlung. No lobar con solidation, effusion, or pneumothorax is evident. Mediastinum: Mediastinal contours appear normal. Heart size is normal. Bones and chest wall: No suspicious bony lesions. Overlying soft tissues appear unremarkable. IMPRESSION: 1. No acute cardiopulmonary process is evident. 2. Minimal right linear midlung atelectasis. Dictated by: Griffin Acevedo M.D. on 08/27/2017 at 13:30 Approved by: Griffin Acevedo M.D. on 08/27/2017 at 13:31
[2017-08-27] MEDS ORDERED: Ondansetron 2 mg/mL 2 mL Inj IVPUSH PRN (14:40)
[2017-08-27 15:19] VITALS: BP 134/80; PULSE 90; RESP 18; O2SAT 98
[2017-08-27 16:05] VITALS: BP 148/99; PULSE 91; RESP 20; O2SAT 98
--- NOTE | 2017-08-27 16:07 | PCM.HPMED ---
Subjective Date of Service Aug 27, 2017 Primary Provider: Admitting Physician: Primary Care Physician: Bhavani Galeano MD Attending Physician: Chief Complaint: abdominal pain, n, v History of Present Illness: 51yo M w/ poorly controlled DM, last a1c 7.4 follow up [facility] clinic, multiple admit with DKA, bipolar, HTN, HLD, chronic back pain, diabetic neuropathy p/w acute onset abdominal pain with, nausea, multiple vomiting, po intolerability. pt is difficult historian, not very consistent to his story, pt stated that he was USOH until 3days ago, started having nausea, thinks that his sugar was low, which usually made him nausea, sick. patient then developed periumbilical pain, constant, with multiple vomiting, NBNB. pt stopped using insulin for 3days as pt thought it was associated with low sugar. Pt was not able to eat anything during this course, Yesterday pt noticed glc down to 79. Today, pt was sweaty, very weak, also developed difficulty of breathing and GI symptoms persisted, decided to come to the hospital. ED VS bp stable, mildly tachy 90-100, afebrile, 100% on RA. UA showed ketone negative. labs showed hyperglycemia 300s, mild hyponatremia, hypokalemia, AG23, lipase WNL. ROS: pt also c/o GOLDSTEIN, diffusely, moderate. pt denied cough, sputum, sore throat, no sick contacts, living with roomates, no recent travel, denied any new medication, stated that he uses 10-20units of lispro tid and 50unit of lantus at night normally(not for 3days). pt also takes many pills, but cannot remember single name of medications. no caregive at home, but has sister in other state. Review of Systems: Pertinent positives as noted in history of present illness. All other systems were reviewed and are negative Allergies Coded Allergies: acetaminophen (Verified Allergy, Unknown, 08/27/17) aspirin (Verified Allergy, Unknown, rash, 08/27/17) Home Medications Scheduled Atorvastatin Calcium (Atorvastatin Calcium) 20 Mg Tablet 20 MG PO DAILY Buspirone (Buspirone) 15 Mg Tablet 15 MG PO TID Doxepin (Doxepin) 100 Mg Capsule 100 MG PO HS Duloxetine (Duloxetine) 60 Mg Capsule.dr 120 MG PO DAILY Hydroxyzine HCl (HydrOXYzine Hcl) 50 Mg Tablet 100 MG PO BID Metoclopramide (Metoclopramide) 10 Mg Tablet 10 MG PO ACHS Omeprazole (Omeprazole) 20 Mg Capsule.dr 20 MG PO DAILY Pregabalin (Lyrica) 150 Mg Capsule 150 MG PO TID Ziprasidone (Ziprasidone) 80 Mg Capsule 80 MG PO BID Scheduled PRN Dicyclomine (Dicyclomine) 20 Mg Tablet 40 MG PO QID PRN PRN For GI Cramps Hydroxyzine Pamoate (Vistaril) 25 Mg Capsule 25 MG PO DAILY PRN PRN For Anxiety Insulin Glargine (Lantus U100 Insulin Vial) 100 Unit/Ml Vial 50 UNIT SUBQ DAILY PRN PRN Diabetes Insulin Human Lispro (HumaLOG U100 Insulin Vial) 100 Unit/Ml Unit 15 UNIT SUBQ TIDWM PRN PRN diabetes Check blood sugars before meals and at bedtime. Use correction factor only before meals. Blood Sugar Lispro Correction: <151, 0 units; 151-175, 1 unit; 176-200, 2 units; 201-225, 3 units; 226-250, 4 units; 251-275, 5 units; 276-300 , 6 units; 301-325, 7 units; 326-350, 8 units; 351-375, 9 units; 376-400, 10 units; >400, 12 units. Risperidone (Risperidone) 1 Mg Tablet 1 MG PO HS PRN PRN For Insomnia Tramadol (Tramadol) 50 Mg Tablet 50-100 MG PO TID PRN PRN For Pain PMH PMH DM, a1c used to very [id number] until , last a1c controlled7.4, Bipolar disorder Hypertension GERD Hyperlipidemia Chronic Low back pain Peripheral neuropathy History of TB exposure 7 years ago with treatment monitored with chest x-rays yearly Chronic pain syndrome Surgical History denied Family History Positive for depression and son. Social History Hx Alcohol Use: No Hx Substance Use: No Hx Tobacco Use: Yes (2 cigarettes per day) Smoking Status: Never Smoker Exam Vital Signs Vital Sign - Last Date Time Temp Pulse Resp B/P Pulse Ox O2 Delivery O2 Flow Rate FiO2 08/27/17 11:50 36.4 100 20 141/102 100 Room Air Exam Distressed due to nausea, no JVD, dry MM, no LAD RRR, nl s1, s2 no mrg CTAB, no w,c S,ND, diffuse td,normoactive BS+ warm, no edema, pulses 2/2 Lab and Diagnostics Result Diagram: 08/27/17 1230 08/27/17 1230 X-Rays, CTs and MRIs PROCEDURE: X-RAY CHEST ONE VIEW, PORTABLE ([id number]) INDICATIONS: cough TECHNIQUE: One view of the chest was acquired. COMPARISON: [facility], CR, XR CHEST 1VW (PORTABLE), 07/17/2017, 9: 16. FINDINGS: Surgical changes and devices: None. Lungs and pleura: Mild focal linear atelectasis is identified within the right midlung. No lobar consolidation, effusion, or pneumothorax is evident. Mediastinum: Mediastinal contours appear normal. Heart size is normal. Bones and chest wall: No suspicious bony lesions. Overlying soft tissues appear unremarkable. IMPRESSION: 1. No acute cardiopulmonary process is evident. 2. Minimal right linear midlung atelectasis. Dictated by: Griffin Acevedo M.D. on 08/27/2017 at 13:30 Approved by: Griffin Acevedo M.D. on 08/27/2017 at 13:31 Assessment & Plan 51yo M w/ poorly controlled DM, last a1c 7.4 follow up [facility] clinic, multiple admit with DKA, bipolar, HTN, HLD, chronic back pain, diabetic neuropathy p/w acute onset abdominal pain with, nausea, multiple vomiting, po intolerability. acute, active abd pain, n,v, GOLDSTEIN, POA, possibly due to gastroparesis given long stading uncontrolled DM, ketone neg. no significant acidosis goes against DKA. possible viral syndrome. -continue supportive tx with zofran prn for n/v, -fioricet prn for GOLDSTEIN -will consider abd images if sx continues. -start PPI, reglan prn -nasal swab viral PCR uncontrolled DM, POA, used to markedly uncontrolled, a1c seems to get better, -will resume home insulin regimen. lantus 25unit tonight, lispro high dose correctional +5/7/7unit with meal. adjust further based on fsg tomorrow. Mild Leukocytosis, POA, no s/s of GI infection. UA clean, likely stress induced , -trend fever curve, wbc for now, chronic, stable, Bipolar disorder - Continue home medications. Hypertension - Patient reports no longer using lisinopril for hypertension. GERD - Continue home medications Hyperlipidemia - Continue home medications Chronic Low back pain Peripheral neuropathy - Continue home medications. History of TB exposure 7 years ago with treatment monitored with chest x-rays yearly dispo:Patient will be admitted with inpatient status with expectation of inpatient therapy for more than 2 midnights diet:diabetic dvt ppx:LMWH Full code Time spent 65min Josefina Bills MD Aug 27, 2017 14:43
[2017-08-27] MEDS ORDERED: Glucose 40% Oral Gel 15 Gm Tube PO PRN (16:10)
[2017-08-27] MEDS ORDERED: Pantoprazole 40 mg ER24 Tablet PO ONE (16:10)
[2017-08-27 16:15] VITALS: BP 148/99; PULSE 91; RESP 20; O2SAT 98
[2017-08-27] MEDS ORDERED: Butalbital-Acet-Caffeine Tablet PO PRN (16:15)
[2017-08-27] MEDS ORDERED: Butalbital-Acet-Caffeine Tablet PO ONE (16:15)
[2017-08-27 16:17] VITALS: PULSE 85
[2017-08-27] MEDS: 0.9% Sodium Chloride 1,000 ML IV SCH (16:17)
[2017-08-27] MEDS: Heparin 5,000 Unit/mL Inj SUBQ SCH ×2 (16:42→23:54)
[2017-08-27] MEDS: Insulin LISPRO 300 Unit/3 mL Inj SUBQ SCH ×2 (17:45→21:38)
--- NOTE | 2017-08-27 17:52 | NUR ---
Admit Note Patient transferred to [facility] from ED @ 1600. K+ niharika infusing @ 125ml/hr, NS @ 100ml/hr to be initiated post niharika. BG @ 1753 143, 7 units of Lispro per order admin. Mentation at baseline, patient unsure if he took medications before going to ED or recollection of medications. Med rec [facility] chart, awaiting medication list from [facility] pharmacy to compare current meds, plan to leave for NOC RN or admit RN 08/28, otherwise, admit completed. Oriented to room.
[2017-08-27 19:36] VITALS: BP 135/81; PULSE 87; RESP 16; O2SAT 98
[2017-08-27] MEDS ORDERED: Insulin GLARgine 100 Unit/mL Syringe SUBQ SCH (21:00)
[2017-08-28 00:17] VITALS: BP 148/84; PULSE 77; RESP 18; O2SAT 98
--- NOTE | 2017-08-28 01:27 | NUR ---
Pain P: Pt c/o headache rated at an 8 I: Given oxycodone. E: Pt is able to rest. Eyes closed.
[2017-08-28] MEDS: 0.9% Sodium Chloride 1,000 ML IV SCH ×2 (04:01→12:42)
[2017-08-28 04:28] VITALS: BP 146/86; PULSE 70; RESP 18; O2SAT 98
[2017-08-28 06:31] VITALS: PULSE 70
[2017-08-28 06:52] LABS: BASOPHILS % (AUTO) 0.2 % (0-3); EOSINOPHILS % (AUTO) 0.3 % (0-5); MONOCYTES % (AUTO) 10.9 % (4-12); Mean Corpuscular Hemoglobin 29.9 pg (27.0-35.0); Mean Corpuscular Volume 83.4 fL (81-100); NEUTROPHILS % (AUTO) 53.2 % (40-74); Platelet Count 213 bil/L (150-400)
[2017-08-28 07:08] LABS: Magnesium 1.8 mg/dL (1.6-2.6)
[2017-08-28 08:00] VITALS: PULSE 78
[2017-08-28] MEDS: Heparin 5,000 Unit/mL Inj SUBQ SCH ×2 (08:01→16:16)
[2017-08-28] MEDS: Insulin LISPRO 300 Unit/3 mL Inj SUBQ SCH ×2 (08:01→12:41)
[2017-08-28] MEDS: Pantoprazole 40 mg ER24 Tablet PO SCH ×2 (08:02→16:16)
[2017-08-28 09:06] VITALS: BP 176/115; PULSE 84; RESP 18; O2SAT 98
[2017-08-28] MEDS ORDERED: HYDR50CA3 PO (09:18)
[2017-08-28] MEDS ORDERED: Labetalol 5 mg/mL 20 mL Inj IVPUSH ONE (09:25)
[2017-08-28] MEDS ORDERED: Potassium Chloride 20 mEq SR Tablet PO ONE (09:25)
[2017-08-28] MEDS ORDERED: DOXE50CA3 PO (09:55)
--- NOTE | 2017-08-28 11:36 | NUR ---
Social Work: Initial Assessment Data: See initial assessment. Patient is a 51 year old male who was admitted on 08/27/17 for n/v, developing DKA, and dehydration per H&P. Patient's insurance is [employer] and his PCP is Bhavani Galeano MD. EMR reviewed. SW met with patient to discuss discharge planning. SW role explained. Patient states that he resides with his roommate in an apartment located in [place]. Patient states that the apartment is located on the 2nd floor and there are about twenty steps to get to the entrance of the apartment. Patient considers his cousin Milton to be his main source of support. Patient confirms that he is I at baseline and is able to perform all of his ADLs and care needs. Patient states that because of his neuropathy, he uses a cane. Patient confirms that he drives via POV. Patient states that he received home health RN and PT years ago because unable to recall the name of the HH agency. Patient denies a hx of SNF. Patient denies having superintendent container terminal care insurance or [facility] benefits. Upon discharge, patient states that he will drive himself home. SW provided patient with a discharge planning checklist booklet and encouraged to call with any questions or concerns. Phone number provided. SW will continue to follow. Assessment: Patient will likely discharge home when medically stable. Plan: Patient will likely discharge home when medically stable. Patient will provide his own transportation home via POV. SW will continue to follow for needs. CHEIKH Gama Addendum: 08/28/17 at 1204 by SIRIA VOGEL Amended: Links added.
[2017-08-28 12:34] VITALS: BP 151/107; PULSE 67; RESP 18; O2SAT 97
--- NOTE | 2017-08-28 16:07 | PCM.DIMED ---
Discharge Instructions Date of Service Aug 28, 2017 Dates of Hospitalization Aug 27, 2017 at 14:46 Discharge Diagnosis Discharge Diagnosis 1. Headache, resolved. 2. uncontrolled DM 2, improved. 3. Bipolar disorder, stable 4. Essential hypertension, stable 5. GERD, stable 6. Chronic low back pain, stable 7. Peripheral neuropathy, stable. Diet Discharge Diet: Diabetic Activity Discharge Activity: No restrictions Call your provider Call your provider for: Fever or Chills, Chest pain, Vomitting, Weakness ( unilateral), Other (headache) Patient Instructions Patient Instructions See Dr. Galeano at [facility] tomorrow, Friday, August 29, as scheduled. Ghulam Carey MD Aug 28, 2017 16:07
[2017-08-28] MEDS ORDERED: METO10TA3 PO (16:08)
--- NOTE | 2017-08-28 16:28 | PCM.DC.MED ---
Discharge Summary Date of Service Aug 28, 2017 Dates of Hospitalization Date of Hospital Admission Aug 27, 2017 at 14:46 Date of Discharge: Aug 28, 2017 Providers: Admitting Physician: Josefina Bills MD Primary Care Physician: Bhavani Galeano MD Attending Physician: Ghulam Larsen MD Diagnosis at Time of Discharge Diagnosis at Time of Discharge 1. Headache, resolved. 2. uncontrolled DM 2, improved. 3. Bipolar disorder, stable 4. Essential hypertension, stable 5. GERD, stable 6. Chronic low back pain, stable 7. Peripheral neuropathy, stable. Consultations None Procedures XRay, CTs & MRIs PROCEDURE: X-RAY CHEST ONE VIEW, PORTABLE ([id number]) INDICATIONS: cough TECHNIQUE: One view of the chest was acquired. COMPARISON: [facility], CR, XR CHEST 1VW (PORTABLE), 07/17/2017, 9: 16. FINDINGS: Surgical changes and devices: None. Lungs and pleura: Mild focal linear atelectasis is identified within the right midlung. No lobar consolidation, effusion, or pneumothorax is evident. Mediastinum: Mediastinal contours appear normal. Heart size is normal. Bones and chest wall: No suspicious bony lesions. Overlying soft tissues appear unremarkable. IMPRESSION: 1. No acute cardiopulmonary process is evident. 2. Minimal right linear midlung atelectasis. Dictated by: Griffin Acevedo M.D. on 08/27/2017 at 13:30 Approved by: Griffin Acevedo M.D. on 08/27/2017 at 13:31 Invasive Procedures None Brief History 51yo M w/ poorly controlled DM, last a1c 7.4 follow up [facility], multiple admit with DKA, bipolar, HTN, HLD, chronic back pain, diabetic neuropathy p/w acute onset abdominal pain with, nausea, multiple vomiting, po intolerability. pt is difficult historian, not very consistent to his story, pt stated that he was USOH until 3days ago, started having nausea, thinks that his sugar was low, which usually made him nausea, sick. patient then developed periumbilical pain, constant, with multiple vomiting, NBNB. pt stopped using insulin for 3days as pt thought it was associated with low sugar. Pt was not able to eat anything during this course, Yesterday pt noticed glc down to 79. Today, pt was sweaty, very weak, also developed difficulty of breathing and GI symptoms persisted, decided to come to the hospital. ED VS bp stable, mildly tachy 90-100, afebrile, 100% on RA. UA showed ketone negative. labs showed hyperglycemia 300s, mild hyponatremia, hypokalemia, AG23, lipase WNL. ROS: pt also c/o GOLDSTEIN, diffusely, moderate. pt denied cough, sputum, sore throat, no sick contacts, living with roomates, no recent travel, denied any new medication, stated that he uses 10-20units of lispro tid and 50unit of lantus at night normally(not for 3days). pt also takes many pills, but cannot remember single name of medications. no caregive at home, but has sister in other state. Hospital Course 1. Headache, resolved. The patient had some nausea and a headache intermittently while the hospitalist is treated symptomatically with pain medication. His previous admission included both lumbar puncture and a CT of the head which are both normal. The patient was comfortable with symptomatic treatment of these symptoms. 2. uncontrolled DM 2, improved. The patient is admitted with uncontrolled diabetes and mild hypovolemia. He was resuscitated and started back in his insulin regimen. He had no ketones in his urine. The patient improved symptomatically. 3. Bipolar disorder, stable. This remains stable on hospital 4. Essential hypertension, stable He had mild hypertension while in the hospital. He had been off his medications for several days before admission. 5. GERD, stable. This was stable in the the hospital. 6. Chronic low back pain, stable. This is stable in the hospital 7. Peripheral neuropathy, stable. This is stable in the hospital Exam Vital Signs (Last) Date Time Temp Pulse Resp B/P Pulse Ox O2 Delivery O2 Flow Rate FiO2 08/28/17 12:34 36.8 67 18 151/107 97 Room Air Exam Patient was seen and examined on the day of discharge Test 08/27/17 12:30 08/27/17 14:06 08/28/17 06:15 Hemoglobin A1c 7.7% (4.8-5.6) Lipase 8U/L (13-60) Hold Villanueva Top Tube Received (Received) Ketones Negative (Negative) Urine Color Yellow (YELLOW) Urine Appearance Clear (CLEAR,HAZY) Urine pH 6.0 (5.0-8.0) Urine Specific [place] 1.030 (1.003-1.035) Urine Protein 100mg/dL (NEG,TRACE) Urine Glucose (UA) 1000mg/dL (NEGATIVE) Urine Ketones 80mg/dL (NEGATIVE) Urine Occult Blood Trace (NEGATIVE) Urine Nitrite Negative (NEGATIVE) Urine Bilirubin Negative (NEGATIVE) Urine Urobilinogen Normalmg/dL (NORMAL) Urine Leukocyte Esterase Negative (NEGATIVE) Urine RBC 0-2/hpf (0-2) Urine WBC 0-5/hpf (0-5) Urine Epithelial Cells Occasional/hpf (NONE-MOD) Urine Crystals None seen (NONE SEEN) Urine Bacteria None/hpf (NONE-FEW) Urine Hyaline Casts None/lpf (NONE) Urine Granular Casts None seen (NONE SEEN) Urine Waxy Casts None seen (NONE SEEN) Urine Red Blood Cell Casts None seen (NONE SEEN) Urine White Blood Cell Casts None seen (NONE SEEN) Urine Mucus Present (None Seen) Urine Trichomonas None seen (NONE SEEN) Urine Yeast None (NONE SEEN) Urinalysis Comment None Urine Culture Reflexed Not indicated White Blood Count 8.8th/mm3 (3.8-10.1) Red Blood Count 4.52mil/mm3 (4.40-5.80) Hemoglobin 13.5g/dL (13.8-17.2) Hematocrit 37.7% (41.0-50.0) Mean Corpuscular Volume 83.4fL (81-100) Mean Corpuscular Hemoglobin 29.9pg (27.0-35.0) Mean Corpuscular Hemoglobin Concent 35.8% (32.0-37.0) Red Cell Distribution Width 13.0% (12.3-15.4) Platelet Count 213bil/L (150-400) Neutrophils (%) (Auto) 53.2% (40-74) Lymphocytes (%) (Auto) 35.2% (14-46) Monocytes (%) (Auto) 10.9% (4-12) Eosinophils (%) (Auto) 0.3% (0-5) Basophils (%) (Auto) 0.2% (0-3) Sodium Level 136mEq/L (134-144) Potassium Level 3.4mEq/L (3.5-5.2) Chloride Level 102mEq/L (97-108) Carbon Dioxide Level 21mmol/L (18-29) Blood Urea Nitrogen 24mg/dL (6-24) Creatinine 0.99mg/dL (0.76-1.27) Estimat Glomerular Filtration Rate 85mL/min (>59) Glucose Level 142mg/dL (60-99) Calcium Level 8.4mg/dL (8.5-10.1) Magnesium Level 1.8mg/dL (1.6-2.6) Total Bilirubin 0.6mg/dL (0.0-1.2) Aspartate Amino Transf (AST/SGOT) 19U/L (0-50) Alanine Aminotransferase (ALT/SGPT) 15U/L (0-44) Alkaline Phosphatase 88U/L (25-150) Total Protein 6.2g/dL (6.4-8.4) Albumin 3.8g/dL (3.4-5.0) Discharge Medications Discharge Medications Atorvastatin Calcium (Atorvastatin Calcium) 20 Mg Tablet 20 MG PO DAILY ( Reported) Buspirone (Buspirone) 15 Mg Tablet 15 MG PO TID (Reported) Doxepin (Doxepin) 100 Mg Capsule 100 MG PO HS (Reported) Doxepin (Doxepin) 50 Mg Capsule 50 MG PO HS (Reported) Duloxetine (Duloxetine) 60 Mg Capsule.dr 120 MG PO DAILY (Reported) Hydroxyzine Pamoate (HydrOXYzine Pamoate) 50 Mg Capsule 100 MG PO BID (Reported ) Insulin Glargine (Lantus U100 Insulin Vial) 100 Unit/Ml Vial 50 UNIT SUBQ DAILY (Reported) Insulin Human Lispro (HumaLOG U100 Insulin Vial) 100 Unit/Ml Unit 5-20 UNIT SUBQ TIDWM (Reported) Check blood sugars before meals and at bedtime. Use correction factor only before meals. Blood Sugar Lispro Correction: <151, 0 units; 151-175, 1 unit; 176-200, 2 units; 201-225, 3 units; 226-250, 4 units; 251-275, 5 units; 276-300 , 6 units; 301-325, 7 units; 326-350, 8 units; 351-375, 9 units; 376-400, 10 units; >400, 12 units. Metoclopramide (Metoclopramide) 10 Mg Tablet 10 MG PO ACHS Prescribed by: GHULAM LARSEN MD Omeprazole (Omeprazole) 20 Mg Capsule.dr 20 MG PO DAILY (Reported) Pregabalin (Lyrica) 150 Mg Capsule 150 MG PO BID (Reported) Ziprasidone (Ziprasidone) 80 Mg Capsule 80 MG PO BID (Reported) As needed Dicyclomine (Dicyclomine) 20 Mg Tablet 40 MG PO QID PRN PRN For GI Cramps ( Reported) Tramadol (Tramadol) 50 Mg Tablet 50-100 MG PO TID PRN PRN For Pain (Reported) Followup Plan Disposition: Home Discharge Diet: Diabetic Discharge Activity: No restrictions Patient Instructions See Dr. Galeano at [facility] tomorrow, August 29, as scheduled. Time spent 30 minutes Ghulam Larsen MD Aug 28, 2017 16:28
--- NOTE | 2017-08-28 16:40 | NUR ---
Social Work-discharge: data:EMR reviewed. Pt is on day 1 of hospitalization for NV per H&P. Pt is medically stable for discharge. Pt has been up independent in his room. Pt's friend to provide transport home today. No discharge needs identified. All updated and agreeable to plan. Assessment:Pt who is independent at baseline. Plan:Pt to discharge home today via POV. No discharge needs identified. All updated and agreeable to plan. CHEIKH Rasheed
--- NOTE | 2017-08-28 16:45 | NUR ---
Discharge patient is alert and oriented X3. Able to make needs known. New orders for discharge. Reviewed discharge instructions, discharge paper work, discharge continuing home medications and new prescription for Metoclopramide, with care notes provided. patient understood discharge instructions and signed discharge paper work. IV infiltration noted prior to removal of peripheral IV to left hand with no redness, no sign and symptoms of infection but slight swelling with no redness. Notified Dr. Carey and came to see patient left arm for infiltration prior to discharge, instructions were given to patient by Dr. r/t raise your arm tonight and notify Dr. Galeano at your appointment tommorrow at [facility]. Offered ice and refused states," i will put one when i get home and my ride is here." patient denies any pain or discomfort to left arm prior to discharge per pain assessment and states," i am fine." patient left unit approx 1650 via wheel chair by nursing staff. Charge nurse aware r/t infiltration.
== END 2017-08-28 16:44 | disposition home or self-care (01) ==
LOC: SED 11:47 → MPC 14:46
PROVIDERS: ADMIT Internal Medicine; ATTEND Internal Medicine
DX: E11.65 Type 2 diabetes mellitus with hyperglycemia (principal); R51 Headache; F31.9 Bipolar disorder, unspecified; I10 Essential (primary) hypertension; K21.9 Gastro-esophageal reflux disease without esophagitis; M54.5 Low back pain; E11.40 Type 2 diabetes mellitus with diabetic neuropathy, unspecified; D72.829 Elevated white blood cell count, unspecified; E78.5 Hyperlipidemia, unspecified; E87.6 Hypokalemia; E86.0 Dehydration; R11.2 Nausea with vomiting, unspecified; G89.4 Chronic pain syndrome; F84.5 Asperger's syndrome; Z88.8 Allergy status to other drugs, medicaments and biological substances; Z79.4 Long term (current) use of insulin; Z86.11 Personal history of tuberculosis
CPT/HCPCS: 36415; 71010; 80053; 81000; 82009; 82948; 83036; 83690; 83735; 85025; 96361; 96372; 96374; 96375; 99285; G0378; J1644; J1815; J1885; J2270; J2405; J2765; J3480; J7030